=== PATIENT | male | born 1980 | race Caucasian/White ===

== ENCOUNTER → 2016-08-04 09:25 | Day surgery (SDC) | payer BC ==
--- NOTE | 2016-07-19 09:17 | HP ---
PREOPERATIVE HISTORY AND PHYSICAL: DATE OF OFFICE VISIT: 07/13/16 DATE OF SURGERY: 08/04/[address] - [facility] ATTENDING SURGEON: Meghana Soto MD PROCEDURE: Right knee arthroscopic surgery, lysis of adhesions. CHIEF COMPLAINT: Right knee pain. HISTORY OF PRESENT ILLNESS: Orlando follows up 21 weeks 1 day status post right knee arthroscopic ACL reconstruction with revision with quad autograft and lateral root meniscus tear. The patient states that he continues to have pain. He has received a corticosteroid injection in the past that has not worked, this pain continues to worsen. He also has intermittent swelling. The pain is in his medial knee. He also reports intermittent hyperextension of the knee and the knee feels locked especially when he is turning on the foot. The patient is off Xarelto he was on for treatment of DVT postoperatively. He is not taking anything for pain. He denies any numbness or tingling. He has failed conservative measures and has therefore agreed to undergo a right knee arthroscopic surgery, lysis of adhesions with Dr. Soto. PAST MEDICAL HISTORY: Positive for history of a DVT. PAST SURGICAL HISTORY: Five total surgeries on the knee to include a right knee ACL reconstruction, right knee ACL revision with bilateral root meniscus repair. He has also had a right shoulder labral repair. He denies complications with anesthesia. MEDICATIONS: Diclofenac 75 mg take 1 by mouth twice a day with food. ALLERGIES: No known drug allergies. FAMILY HISTORY: Denies, noncontributory. SOCIAL HISTORY: He works as a pump mechanic. He lives with his and children. He denies tobacco use and rarely consumes alcohol. REVIEW OF SYSTEMS: A 14-point review of systems was reviewed with the patient and it is found to be positive for right knee pain, stiffness, and instability, otherwise negative. Denies chest pain, shortness of breath. It is also positive for history of DVT. Denies chest pain, shortness of breath, history of bleeding disorder, or problems with anesthesias in the past. PHYSICAL EXAMINATION GENERAL: A well-developed, well-nourished 35-year-old male, in no acute distress. VITAL SIGNS: Height 74, weight 235, pulse 64, respiratory rate 16, BMI 30.2. HEENT: Normocephalic and atraumatic. Throat clear. NECK: Supple. PULMONARY: Lungs clear to auscultation bilaterally. No wheezing, rhonchi, or rales. CARDIOVASCULAR: Regular rate and rhythm. No murmurs, gallops, and rubs. No edema. ABDOMEN: Positive bowel sounds. Soft, nontender. MUSCULOSKELETAL: Right lower extremity, skin is intact. Well-healed surgical incision. Mild effusion. Nontender to palpation. Range of motion from 0 to 130 degrees. Stable to varus and valgus stress. Has stable Farida. +2 dorsalis pedis pulse. Sensation intact to light touch distally. Left lower extremity, skin is intact. No effusion. Nontender. Full range of motion. +2 dorsalis pedis pulse. Sensation is intact to light touch distally. NEURO: Alert and oriented x3. Cranial nerves grossly intact. Sensation is intact to light touch distally. DIAGNOSTIC STUDIES/LAB DATA: MRI revealed small joint effusion and degenerative changes of the lateral meniscus. ACL is intact. IMPRESSION: Ankylosis, right knee. History of ACL reconstruction. PLAN: Orlando is a 35-year-old male who presents to the clinic 21 weeks 1 day status post ACL reconstruction with a revision with quad autograft and lateral root of the meniscus tear. He is having pain and instability likely due to scar tissue from prior surgeries. Therefore, he is scheduled to undergo a right knee arthroscopic surgery, lysis of adhesions with Dr. Soto on 08/04/16. He will return to the office in 10 to 14 days postoperatively for followup and suture removal. He has a history of deep venous thrombosis and Xarelto has worked for him in the past, so he will be put on Xarelto postoperatively for DVT prophylaxis. Percocet will be used for postoperative pain management. SON REYEZ [id number]/[facility] #: [id number] YANELY
[~2016-08-04 09:25] MED LIST: Buffered Lidocaine 1% SYRIN* 3 ML/SYR SYRINGE INTRADERM ONE; Bupivacaine 0.25% EPI 200,000* 30 ML SDV ONE; Bupivacaine 0.25% SDV* 30 ML ONE; DiMENhydriNATE IV* 50 MG/ML VIAL IV PUSH PRN; Famotidine IV* 10 MG/ML 2 ML (20 mg) IV ONE; Famotidine IV* 10 MG/ML 2 ML (20 mg) ONE; Glycopyrrolate IV* 0.2 MG/ML 1 ML VIAL ONE; HYDROmorphone* 1 MG/ML 1 ML SYR IV PRN; HYDROmorphone* 1 MG/ML 1 ML SYR ONE; Ketorolac INJ* 30 MG/ML 1 ML VIAL ONE; Lidocaine 2% PF* 5 ML VIAL ONE; Midazolam* 1 MG/ML 2 ML VIAL (2 MG) ONE; Midazolam* 1 MG/ML 5 ML VIAL (5 MG) ONE; Ondansetron INJ* 2 MG/ML VIAL ONE; Propofol* 10 MG/ML 20 ML BTL IV PUSH ONE; ceFAZolin 2 GM PREMIX(*) 2 GM/50 ML BAG IVPB ONE; fentaNYL* 50 MCG/ML 2 ML VIAL (100 MCG VIAL) ONE; methylPREDNISolone ACETATE 80* 80 MG/ML 1 ML VIAL ONE; oxyCODONE/Acetamin 5/325 MG* TAB ONE; oxyCODONE/Acetamin 5/325 MG* TAB PO PRN
[2016-08-04 15:41] VITALS: BP 126/76
--- NOTE | 2016-08-05 02:28 | OP ---
DATE OF OPERATION: 08/04/16 [facility] DATE OF : 84 SURGEON: Meghana Soto MD MEDICAL OFFICE ASSISTANT: SON Agosto. An preschool assistant director was needed for the entirety of the case to help with positioning, retraction, and was utilized throughout all portions of the case and in case there was a repair that was involved. ANESTHESIOLOGIST: Dr. Aburto. ANESTHESIA: General. PRE-OP DIAGNOSES: Right knee persistent pain, no lakhwinder instability status post revision anterior cruciate ligament reconstruction, with some mild stiffness and symptomatic locking. POST-OP DIAGNOSIS: OPERATIVE PROCEDURE: Right knee arthroscopy with lysis of adhesions and synovectomy. INDICATIONS: Orlando Salamanca underwent a revision ACL reconstruction using quad tendon autograft and a lateral root of the meniscus repair in February of 2016. His surgery was complicated by postoperative DVT and the fact that he could not go to physical therapy. He was doing well. He felt that his knee was stable but he had persistent anteriorly based pain. He would have aching. He felt like the knee would give way. His motion was acceptable but he was missing some full extension. The pain was all about the knee cap and there was poor mobilization. After risks and benefits of surgery and trial with steroid injections which brought him quite a bit of relief, the decision was made to proceed with arthroscopic surgery with lysis of adhesions and meniscus versus loose body removal as indicated. Risks include but are not limited to, bleeding , infection, damage to nerves, vessels, surrounding structures, wound nonhealing , persistent pain, need for further surgery, risk of anesthesia, risk of DVT. He has a previous history of DVT including a recent one with his last surgery as well as risk of anesthesia. He has elected to proceed with surgery. COMPLICATIONS: None. ESTIMATED BLOOD LOSS: Minimal. DESCRIPTION OF PROCEDURE: The patient was greeted in the preoperative area by the attending surgeon, correct extremity was marked, consent was confirmed. The patient was then brought back to the operating suite where he was placed in supine position on the operating table. He underwent general anesthesia with LMA intubation, which he tolerated without difficulty. An unsterile tourniquet was placed high on the right leg. The leg was examined and he was found to have 1 to 130 degrees range of motion, stable Farida, negative posterior drawer , patellar mobilization was difficult, and there was abundant scar under the lateral portal and medial portal. After which a miniature surgical pause was done and the the knee was intra-articularly injected with 0.25% Marcaine with epi. A lateral post was placed and the right leg was prepped and draped in the usual sterile fashion, beginning with chlorhexidine soap and alcohol wipe and final prep with ChloraPrep. After appropriate surgical pause indicating side, site, procedure, and administration of antibiotics, the lateral portal was made sharply with 11 blade. The scope was introduced through the joint. The joint was examined. There was abundant scar that was prepatellar that was present all around the lateral portal and medial portal. There was a scar that was enveloping the patella as well. The patellofemoral joint had grade 0 to 1 changes. The trochlea had very mild small ridge of grade 1 changes. The medial and lateral femoral condyles did not appear to have any wear proximally. The medial and lateral gutters were intact and somewhat difficult to access due to the scar anteriorly. The scope was brought into the notch. The ACL and PCL were intact. The graft had healed quite well. The scope was placed in the medial compartment and medial meniscus was probed and found to be intact. The medial femoral condyle and medial tibial plateau had grade 0 changes. The knee was placed in figure-of-4 position. The previous lateral meniscal repair was still found to be found down. This was probed. The lateral meniscus was also intact. The lateral femoral condyle and lateral tibial plateau had grade 0 changes. The shaver was brought by the lateral root of the meniscus to see if there was any loose debris that was removed and some mild fraying was removed. The knee was then placed between 90 degrees and full extension. The electrocautery device was used to remove the abundant scar anterior along the prepatellar area. This was thick and very hard to remove. This was encompassing all the way into the gutters. A synovectomy was done anteriorly. With the knee in extension, the scar that was around the knee cap as well was removed medially and laterally. This allowed for mobilization and elevation of the knee cap. Once this was complete, all loose debris and tissue were removed from the joint. The final images were obtained. The knee was taken through range of motion and found to extend to 0. All fluid and debris was removed. The portals were closed with 3-0 nylon. The knee was intra-articularly injected with 30 cc of Marcaine with 80 mg of Depo. He was then awoken from anesthesia and transferred to the PACU in stable condition. POSTOPERATIVE PLAN: He will be weightbearing as tolerated. He will be allowed to work on range of motion as tolerated. We will send him to physical therapy to finish his rehab on his ACL as well as rehab this. He will be discharged on pain medication. He will start Xarelto due to previous history of two DVTs, one from the most recent surgery that he has done with me and he will be on Xarelto for at least 2 weeks. He will also be discharged on antibiotics due to multiple surgeries previously on this knee. I will see him back in 10 to 14 days. CC: PCP, Alvino Alexander MD* [id number]/[facility] #: [id number] MTDD
== END | disposition home or self-care (01) ==
LOC: OR 09:25
PROVIDERS: ATTEND Orthopaedic Surgery
DX: M25.561 Pain in right knee (principal); M23.91 Unspecified internal derangement of right knee; M25.661 Stiffness of right knee, not elsewhere classified; Z86.718 Personal history of other venous thrombosis and embolism
CPT/HCPCS: A9270-GY; J0690; J1040; J1170; J1885; J2250; J2405; J2704; J3010

== ENCOUNTER 2016-08-18 13:23 | Observation (INO) | payer BC ==
[2016-08-18] MEDS ORDERED: NS 0.9% 1000 ML* 1,000 ML IV ONE (13:36)
[2016-08-18] MEDS ORDERED: Ondansetron INJ* 2 MG/ML VIAL IV ONE (13:36)
[2016-08-18] MEDS ORDERED: Ketorolac INJ* 30 MG/ML 1 ML VIAL IV ONE (13:36)
[2016-08-18 13:52] LABS: Hematocrit 44 % (42-52); Mean Corpuscular HGB Conc 34 g/dl (31-36); Mean Corpuscular Hemoglobin 31 pg (27-31); Mean Corpuscular Volume 90 fL (80-94); Mean Platelet Volume 10 um3 (7.4-10.4); Red Blood Count 4.92 10^6/ul (4.0-5.4); Red Cell Distribution Width 13 % (10.5-15); White Blood Count 7.7 10^3/ul (3.5-10.8)
[2016-08-18 14:14] LABS: Albumin 4.3 g/dL (3.2-5.2); BUN/Creatinine Ratio 16.7 (8-20); C Reactive Protein 1.87 mg/L (< 5.00); Calcium 10.2 mg/dL (8.6-10.3); EGFR African American 108.2 (>60); EGFR Non-African American 84.1 (>60); Globulin 2.6 g/dL (2-4); Potassium 3.5 mmol/L (3.5-5.0); Total Bilirubin 0.7 mg/dL (0.2-1.0); Total Protein 6.9 g/dL (6.4-8.9)
[2016-08-18] MEDS ORDERED: Morphine INJ* 4 MG/ML 1 ML SYRINGE IV ONE ×2 (14:15→15:59)
--- NOTE | 2016-08-18 14:28 | RAD ---
INDICATION: Left flank pain COMPARISON: CT May 27, 2014 TECHNIQUE: Noncontrast axial source images were acquired from the level hemidiaphragms to the symphysis pubis as part of CT imaging for renal stone. Lung bases: The lung bases are clear. Liver: The liver is normal in size. Noncontrast imaging shows no evidence of a hepatic mass or ductal dilatation. Gallbladder: There are no calcified gallstones. There is no evidence of wall thickening or pericholecystic fluid.. Spleen: The spleen is normal in size. The noncontrast CT appearance is normal. Pancreas: Noncontrast imaging shows no pancreatic mass or ductal dilitation. Adrenal glands: No masses are identified. Kidneys/Bladder: There is a 3 mm proximal left ureteral calculus located near the UPJ that is NOT associated significant obstructive findings. There is an additional nonobstructive 1 mm calculus in the upper pole of the left kidney and there are 3 nonobstructive renal calculi on the right the right kidney all in the 1 mm range. The bladder is unremarkable.. Adenopathy: There is no evidence of intraperitoneal or retroperitoneal adenopathy. Evaluation is limited without oral contrast. Fluid collections: There are no free or localized fluid collections. Vessels: The aorta and iliac vessels are normal in caliber. There are no significant atherosclerotic changes. The IVC appears normal Pelvic organs: The prostate and seminal vesicles appear normal GI tract: Evaluation of the bowel is limited without oral contrast. The stomach, small bowel, and lower GI tract appear grossly normal. There are no obstructive findings. The appendix is visualized and appears normal. Soft tissues: No soft tissue abnormalities of the extraperitoneal abdomen or pelvis are identified. Osseous structures: There are no acute osseous findings. IMPRESSION: BILATERAL NEPHROLITHIASIS WITH A 3 MM PROXIMAL LEFT URETERAL CALCULUS. NO SIGNIFICANT OBSTRUCTION.
[2016-08-18 15:23] LABS: Urine Bacteria Absent (Absent); Urine Bilirubin Negative (Negative); Urine Glucose Negative (Negative); Urine Nitrite Negative (Negative)
[2016-08-18] MEDS ORDERED: oxyCODONE/Acetamin 5/325 MG* TAB PO ONE (15:52)
[2016-08-18] MEDS ORDERED: HYDROmorphone* 1 MG/ML 1 ML SYR IV SLOW PU PRN (17:45)
[2016-08-18] MEDS ORDERED: Tamsulosin CAP* 0.4 MG PO ONE (17:48)
[2016-08-18] MEDS ORDERED: Ondansetron INJ* 2 MG/ML VIAL IV PRN (18:50)
[2016-08-18] MEDS: NS 0.9% 1000 ML* 1,000 ML IV SCH ×2 (18:54→19:30)
[2016-08-18] MEDS: HYDROmorphone* 1 MG/ML 1 ML SYR IV SLOW PU PRN ×2 (19:30→23:39)
[2016-08-18] MEDS ORDERED: Enoxaparin(*) 40 MG/0.4 ML SYR SUBCUT SCH (20:00)
--- NOTE | 2016-08-18 22:47 | HP ---
HISTORY AND PHYSICAL: DATE OF ADMISSION: 08/18/16 PRIMARY CARE PROVIDER: Dr. Alexander. ORTHOPEDIC SURGEON: Dr. Soto. CHIEF COMPLAINT: Left flank pain. HISTORY OF PRESENT ILLNESS: Mr. Salamanca is a 35-year-old male with history of DVT following ACL repair in February 2016 and history of PE following a broken leg in 2008 with no other significant past medical history who presents to the emergency room with complaints of left flank pain. The patient states that at noon he had the sudden onset of severe left flank pain. He noted at that time when he urinated, his urine was light orange in color. He denied any dysuria. He did not see any lakhwinder blood. The patient states that he has not urinated since that time at noon. He denies any associated nausea or vomiting. The patient has never had any pain like this in the past nor has he ever had a kidney stone in the past. PAST MEDICAL HISTORY: 1. History of PE following broken leg in 2008. 2. History of DVT following right ACL repair, February 2016. PAST SURGICAL HISTORY: 1. Right broken leg, 2008, status post casting. 2. Right ACL repair, February 2016. 3. Right knee arthroscopy, August 2016. 4. Right shoulder surgery, September 2015. MEDICATIONS: None. ALLERGIES: No known drug allergies. FAMILY HISTORY: Mom, she is living in her 50s. She does have a history of breast cancer. Dad is living, he is 60 and healthy. SOCIAL HISTORY: The patient is a nonsmoker. Drinks alcohol rarely. He works at a machine shop. He is . He has 2 children and a third child on the way. His is his healthcare proxy. REVIEW OF SYSTEMS: The patient denies any fever, chills, or anorexia. He denies any chest pain or palpitations. No lower extremity edema. No shortness of breath. No abdominal pain, nausea, vomiting, constipation or diarrhea. No hematochezia. No hematuria or dysuria as above. No numbness or tingling of the fingers or toes, no weakness. He has occasional headaches. No anxiety or depression. PHYSICAL EXAMINATION GENERAL: The patient is a well-developed, young, healthy-appearing male sitting up in the bed, in no acute distress. VITAL SIGNS: Blood pressure 132/84, pulse 65, respirations 20, temp 98.2, O2 sat is 99% on room air. HEENT: Pupils are equal, they are round. Extraocular muscles are intact. Oropharynx is clear. Oral mucosa is moist. NECK: There is no submandibular, cervical, or supraclavicular adenopathy. Thyroid is not enlarged. No thyroid nodules noted. PULMONARY: Lungs are clear to auscultation bilaterally. CARDIAC: Normal S1, S2. Regular rate and rhythm. No murmurs, rubs, or gallops. ABDOMEN: Bowel sounds present. Abdomen is soft, nontender, nondistended. MUSCULOSKELETAL: There is no cyanosis or clubbing of the digits. There is full active range of motion. SKIN: Warm and dry. There are no rashes. NEUROLOGIC: Cranial nerves II through XII are grossly intact. Sensation is intact to light touch throughout. Strength is 5/5 and symmetric in both the upper and lower extremities bilaterally. PSYCH: The patient is alert. He is oriented x3. Affect is appropriate. LABORATORY DATA: WBC 7.7, hemoglobin 15.0, hematocrit 44, platelets 202. PTT 23.4. Sodium 140, potassium 3.5, chloride 108, CO2 24, BUN 17, creatinine 1.02 , glucose 122, lactic acid 1.5, calcium 10.2, magnesium 2.0, bilirubin 0.7, AST 20, ALT 36, alk phos 69, CRP 1.87, albumin 4.3, lipase 25. Urinalysis reveals cloudy urine with specific gravity of 1.021, 1+ protein, 3+ blood and 3+ rbc. CT abdomen and pelvis, bilateral nephrolithiasis with 3 mm proximal left ureteral calculus. No significant obstruction. ASSESSMENT AND PLAN: Mr. Salamanca is a 35-year-old male with no significant past medical history outside of provoked deep venous thrombosis and pulmonary embolism following a broken leg and arthroscopic knee surgery who presents to the emergency room with complaints of sudden onset of left flank pain and is identified to have a proximal left ureteral stone. 1. Left ureteral stone. The patient will be started on Flomax per recommendations from Dr. Hudson. Additionally, he will have aggressive IV fluid hydration and pain control. The stone is only 3 mm in size and is likely to pass on its own. The patient's urine will be strained. At this time, there are no signs of infection and therefore, antibiotics will be withheld. 2. DVT prophylaxis. According to Adult Thrombosis Prophylaxis Risk Factor Assessment Guide, the patient has total risk factor score of 4 making him high risk. He will be started on Lovenox 40 mg subcutaneously daily. 3. Code status is full. TIME SPENT: Fifty five minutes was spent admitting this patient. CC: Dr. Alexander* [id number]/[facility] #: [id number] MTDD
[2016-08-19] MEDS: NS 0.9% 1000 ML* 1,000 ML IV SCH ×2 (01:58→09:58)
[2016-08-19] MEDS: HYDROmorphone* 1 MG/ML 1 ML SYR IV SLOW PU PRN ×2 (03:25→09:45)
--- NOTE | 2016-08-19 07:40 | ED ---
Monica Cleary Matthew, scribed for Esau Lott MD on 08/18/16 at 1421 . Abdominal Pain/Male - HPI Summary HPI Summary: A 35 y/o male presents to the ED with sudden, constant, left flank pain since an hour ago. The pain is rated 10/10 in severity. The pain started while the patient was standing at work. Associated symptoms include nausea. The patient denies vomiting. No Hx of kidney stones. The patient stopped xeralto two days ago. SHx includes shoulder and knee surgery. PMHx includes PE and DVT. The patient does not smoke, no alcohol, and no drugs. He reports no FHx. - History of Current Complaint Chief Complaint: EDAbdPain Stated Complaint: ABD PAIN Time Seen by Provider: 08/18/16 13:36 Hx Obtained From: Patient Onset/Duration: Sudden Onset, Lasting Hours, Still Present Timing: Constant Severity Initially: Moderate Severity Currently: Moderate Pain Intensity: 10 Pain Scale Used: 0-10 Numeric Location: Flank - LT Radiates: No Associated Signs And Symptoms: Positive: Nausea. Negative: Vomiting - Allergies/Home Medications Allergies/Adverse Reactions: Allergies Allergy/AdvReac Type Severity Reaction Status Date / Time No Known Allergies Allergy Verified 08/18/16 13:24 PMH/Surg Hx/FS Hx/Imm Hx Endocrine/Hematology History: Denies: Hx Diabetes, Hx Thyroid Disease Cardiovascular History: Reports: Other Cardiovascular Problems/Disorders - HX OF BLOOD CLOTS Denies: Hx Hypertension, Hx Pacemaker/ICD Respiratory History: Reports: Hx Pulmonary Embolism - 2008, Other Respiratory Problems/Disorders - PE 2008 Denies: Hx Asthma, Hx Chronic Obstructive Pulmonary Disease (COPD) GI History: Denies: Hx Ulcer History: Denies: Hx Renal Disease Sensory History: Denies: Hx Contacts or Glasses, Hx Hearing Aid Opthamlomology History: Denies: Hx Contacts or Glasses Neurological History: Reports: Hx Migraine Psychiatric History: Denies: Hx Panic Disorder - Surgical History Surgery Procedure, Year, and Place: 05/2002 ARTHROSCOPY RIGHT KNEE, [facility]. 06/2002 ACL REPAIR RIGHT KNEE, [facility]. 10/2006 ARTHROSCOPY RIGHT KNEE, [facility]. 09/08/15 RIGHT SHOULDER ARTHROSCOPIC LABRAL REPAIR, BICEP TENODESIS, [facility]. ACL repair 02/21-RIGHT KNEE Hx Anesthesia Reactions: No Infectious Disease History: No Infectious Disease History: Denies: Hx Clostridium Difficile, Hx Hepatitis, Hx Human Immunodeficiency Virus (HIV), Hx of Known/Suspected MRSA, Hx Shingles, Hx Tuberculosis, Hx Known/ Suspected VRE, Hx Known/Suspected VRSA, History Other Infectious Disease, Traveled Outside the [place] in Last 30 Days - Family History Known Family History: Negative: Cardiac Disease, Hypertension, Diabetes, Blood Disorder - no FHX of clotting d/o - Social History Alcohol Use: Rare Substance Use Type: Reports: None Smoking Status (MU): Never Smoked Tobacco Review of Systems Constitutional: Negative Eyes: Negative ENT: Negative Cardiovascular: Negative Respiratory: Negative Positive: Abdominal Pain - left flank , Nausea. Negative: Vomiting Genitourinary: Negative Musculoskeletal: Negative Skin: Negative Neurological: Negative Psychological: Normal All Other Systems Reviewed And Are Negative: Yes Physical Exam - Summary Physical Exam Summary: VITAL SIGNS: Reviewed. GENERAL: Patient is a well developed and nourished male with acute distress secondary to pain. Patient is not in any acute respiratory distress. HEAD AND FACE: Normocephalic and atraumatic. EYES: PERRLA, EOMI x 2, No injected conjunctiva. EARS: Hearing grossly intact. Ear canals and tympanic membranes are WNL. MOUTH: Oropharynx within normal limits. NECK: Supple, trachea is midline, no adenopathy, no JVD. CHEST: Symmetric, no tenderness at palpation LUNGS: Clear to auscultation bilaterally. No wheezing or crackles. CVS: RRR,, S1 and S2 present, no murmurs or gallops appreciated. ABDOMEN: Soft, non-tender. No signs of distention. Positive bowel sounds. No rebound no guarding, and no masses palpated. No abdominal bruit or pulsations. Positive left CVAT's EXTREMITIES: FROM in all major joints, no edema, no cyanosis or clubbing. NEURO: Alert and oriented x 3. No acute neurological deficits. Speech is normal. SKIN: Dry and warm Triage Information Reviewed: Yes Vital Signs On Initial Exam: Initial Vitals Temp Pulse Resp BP Pulse Ox 98.2 F 71 16 151/110 100 08/18/16 13:24 08/18/16 13:24 08/18/16 13:24 08/18/16 13:24 08/18/16 13:24 Vital Signs Reviewed: Yes Diagnostics - Vital Signs Vital Signs Temp Pulse Resp BP Pulse Ox 08/18/16 13:24 98.2 F 71 16 151/110 100 - Laboratory Lab Results: Lab Results 08/18/16 08/18/16 08/18/16 Range/Units 13:46 13:46 13:46 WBC 7.7 (3.5-10.8) 10^3/ul RBC 4.92 (4.0-5.4) 10^6/ul Hgb 15.0 (14.0-18.0) g/dl Hct 44 (42-52) % MCV 90 (80-94) fL MCH 31 (27-31) pg MCHC 34 (31-36) g/dl RDW 13 (10.5-15) % Plt Count 202 (150-450) 10^3/ul MPV 10 (7.4-10.4) um3 Neut % (Auto) 59.4 (38-83) % Lymph % (Auto) 32.3 (25-47) % [place] % (Auto) 6.1 (1-9) % Eos % (Auto) 0.6 (0-6) % Baso % (Auto) 1.6 (0-2) % Absolute Neuts (auto) 4.6 (1.5-7.7) 10^3/ul Absolute Lymphs (auto) 2.5 (1.0-4.8) 10^3/ul Absolute Monos (auto) 0.5 (0-0.8) 10^3/ul Absolute Eos (auto) 0 (0-0.6) 10^3/ul Absolute Basos (auto) 0.1 (0-0.2) 10^3/ul Absolute Nucleated RBC 0.01 10^3/ul Nucleated RBC % 0.1 APTT 23.4 L (26.0-36.3) seconds Sodium 140 (133-145) mmol/L Potassium 3.5 (3.5-5.0) mmol/L Chloride 108 (101-111) mmol/L Carbon Dioxide 24 (22-32) mmol/L Anion Gap 8 (2-11) mmol/L BUN 17 (6-24) mg/dL Creatinine 1.02 (0.67-1.17) mg/dL Est GFR ( Amer) 108.2 (>60) Est GFR (Non-Af Amer) 84.1 (>60) BUN/Creatinine Ratio 16.7 (8-20) Glucose 122 H (70-100) mg/dL Lactic Acid (0.5-2.0) mmol/L Calcium 10.2 (8.6-10.3) mg/dL Magnesium 2.0 (1.9-2.7) mg/dL Total Bilirubin 0.70 (0.2-1.0) mg/dL AST 20 (13-39) U/L ALT 36 (7-52) U/L Alkaline Phosphatase 69 (34-104) U/L C-Reactive Protein 1.87 (< 5.00) mg/L Total Protein 6.9 (6.4-8.9) g/dL Albumin 4.3 (3.2-5.2) g/dL Globulin 2.6 (2-4) g/dL Albumin/Globulin Ratio 1.7 (1-3) Amylase 37 (29-103) U/L Lipase 25 (11.0-82.0) U/L Urine Color Urine Appearance Urine pH (5-9) Ur Specific [place] (1.010-1.030) Urine Protein (Negative) Urine Ketones (Negative) Urine Blood (Negative) Urine Nitrate (Negative) Urine Bilirubin (Negative) Urine Urobilinogen (Negative) Ur Leukocyte Esterase (Negative) Urine WBC (Auto) (Absent) Urine RBC (Auto) (Absent) Urine Bacteria (Absent) Urine Glucose (Negative) 08/18/16 08/18/16 Range/Units 13:46 15:00 WBC (3.5-10.8) 10^3/ul RBC (4.0-5.4) 10^6/ul Hgb (14.0-18.0) g/dl Hct (42-52) % MCV (80-94) fL MCH (27-31) pg MCHC (31-36) g/dl RDW (10.5-15) % Plt Count (150-450) 10^3/ul MPV (7.4-10.4) um3 Neut % (Auto) (38-83) % Lymph % (Auto) (25-47) % [place] % (Auto) (1-9) % Eos % (Auto) (0-6) % Baso % (Auto) (0-2) % Absolute Neuts (auto) (1.5-7.7) 10^3/ul Absolute Lymphs (auto) (1.0-4.8) 10^3/ul Absolute Monos (auto) (0-0.8) 10^3/ul Absolute Eos (auto) (0-0.6) 10^3/ul Absolute Basos (auto) (0-0.2) 10^3/ul Absolute Nucleated RBC 10^3/ul Nucleated RBC % APTT (26.0-36.3) seconds Sodium (133-145) mmol/L Potassium (3.5-5.0) mmol/L Chloride (101-111) mmol/L Carbon Dioxide (22-32) mmol/L Anion Gap (2-11) mmol/L BUN (6-24) mg/dL Creatinine (0.67-1.17) mg/dL Est GFR ( Amer) (>60) Est GFR (Non-Af Amer) (>60) BUN/Creatinine Ratio (8-20) Glucose (70-100) mg/dL Lactic Acid 1.5 (0.5-2.0) mmol/L Calcium (8.6-10.3) mg/dL Magnesium (1.9-2.7) mg/dL Total Bilirubin (0.2-1.0) mg/dL AST (13-39) U/L ALT (7-52) U/L Alkaline Phosphatase (34-104) U/L C-Reactive Protein (< 5.00) mg/L Total Protein (6.4-8.9) g/dL Albumin (3.2-5.2) g/dL Globulin (2-4) g/dL Albumin/Globulin Ratio (1-3) Amylase (29-103) U/L Lipase (11.0-82.0) U/L Urine Color Yellow Urine Appearance Cloudy Urine pH 6.0 (5-9) Ur Specific [place] 1.021 (1.010-1.030) Urine Protein 1+(30 mg/dl) H (Negative) Urine Ketones Negative (Negative) Urine Blood 3+ H (Negative) Urine Nitrate Negative (Negative) Urine Bilirubin Negative (Negative) Urine Urobilinogen Negative (Negative) Ur Leukocyte Esterase Negative (Negative) Urine WBC (Auto) Absent (Absent) Urine RBC (Auto) 3+(>10/hpf) H (Absent) Urine Bacteria Absent (Absent) Urine Glucose Negative (Negative) Result Diagrams: 08/18/16 13:46 08/18/16 13:46 Lab Statement: Any lab studies that have been ordered have been reviewed, and results considered in the medical decision making process. - CT CT A/P CT Interpretation: Positive (See Comments) - IMPRESSION: BILATERAL NEPHROLITHIASIS WITH A 3 MM PROXIMAL LEFT URETERAL CALCULUS. NO SIGNIFICANT OBSTRUCTION. CT Interpretation Completed By: Radiologist Abdominal Pain Fem Course/Dx - Course Assessment/Plan: A 35 y/o male presents to the ED with sudden, constant, left flank pain since an hour ago. The pain is rated 10/10 in severity. The pain started while the patient was standing at work. Associated symptoms include nausea. The patient denies vomiting. No Hx of kidney stones. The patient stopped xeralto two days ago. SHx includes shoulder and knee surgery. PMHx includes PE and DVT. The patient does not smoke no alcohol, and no drugs. He reports no FHx. Blood work WNL, urinalysis with 3+ blood, A/P CT shows bilateral nephrolithiasis with a 3 mm proximal left ureteral calculus and no significant obstruction. The patient was initially given IV fluids and Toradol for the pain. He was also given Flomax. The pain continued therefore he was given two addition doses of morphine and Percocet, which has now improved the pain. However, 15 minutes after the Percocet the patient developed 8/10 pain again. The patient was diaphoretic therefore he was given an additional dose of morphine. Discussed my findings with Dr. Hudson who recommended admission for pain control and he will consult on the patient in the morning. I also discussed my findings with Dr. Kevin who accepted the patient for admission. The patent is A&Ox3 and hes hemodynamically stable. - Diagnoses Differential Diagnosis/HQI/PQRI: Bowel Obstruction, Diverticulitis, Ureteral Stone Provider Diagnoses: Kidney stone on left side - Provider Notifications Discussed Care Of Patient With: Dr. Hudson (Urology) at 17:43 -- Notified of patient's history and recommends the patient be admitted into hospitalist services. Dr. Kevin (Hospitalist) at 17:44 -- Notified of patient's history and will admit the patient. Discharge - Discharge Plan Condition: Stable Disposition: ADMITTED TO [facility] The documentation as recorded by the scribeMonica Matthew accurately reflects the service I personally performed and the decisions made by me, Esau Lott MD.
[2016-08-19] MEDS ORDERED: Tamsulosin CAP* 0.4 MG PO SCH (09:00)
[2016-08-19] MEDS ORDERED: oxyCODONE TAB* 5 MG TAB PO PRN (09:18)
--- NOTE | 2016-08-19 09:38 | RAD ---
HISTORY: Left ureteral calculus COMPARISONS: CT dated August 18, 2016 VIEWS: Frontal views of the abdomen. FINDINGS: BOWEL: There is a nonspecific bowel gas pattern, with nondilated small bowel gas noted. CALCULI: There is a 0.3 cm calculus overlying the left hemiabdomen at the level of the L2 transverse process, corresponding to the calculus noted on previous CT examination. This is stable in size and position. BONES AND SOFT TISSUES: There are no osseous abnormalities. OTHER FINDINGS: The lung bases are clear. There is no subphrenic gas. IMPRESSION: STABLE LEFT NEPHROLITHIASIS
[2016-08-19 15:54] VITALS: BP 122/54
--- NOTE | 2016-08-19 16:37 | PN ---
Subjective Date of Service: 08/19/16 Interval History: Pt is feeling ok. He wants to go home. He continues to have mild left flank pain. He thinks he will be able to manage the pain at home with oral pain medications. He has not seen the stone in the urine yet. Objective Active Medications: Enoxaparin Sodium (Lovenox(*)) 40 mg SUBCUT Q24H [facility] Last Admin: 08/18/16 21:50 Dose: 40 mg Hydromorphone HCl (Dilaudid Iv*) 1 mg IV SLOW PU Q4H PRN PRN Reason: PAIN Last Admin: 08/19/16 09:45 Dose: 1 mg Sodium Chloride (Ns 0.9% 1000 Ml*) 1,000 mls @ 150 mls/hr IV PER RATE [facility] Last Admin: 08/19/16 09:58 Dose: 150 mls/hr Ondansetron HCl (Zofran Inj*) 4 mg IV Q6H PRN PRN Reason: NAUSEA Last Admin: 08/19/16 09:44 Dose: 4 mg Oxycodone HCl (Roxycodone Tab*) 5 mg PO Q4H PRN PRN Reason: PAIN Tamsulosin HCl (Flomax Cap*) 0.4 mg PO DAILY [facility] Last Admin: 08/19/16 10:12 Dose: Not Given Vital Signs 08/18/16 08/18/16 08/18/16 17:59 18:00 18:01 Temperature Pulse Rate 75 79 Respiratory Rate Blood Pressure 136/83 (mmHg) O2 Sat by Pulse 99 99 Oximetry 08/18/16 08/18/16 08/18/16 18:07 18:30 19:30 Temperature Pulse Rate 65 Respiratory 20 20 Rate Blood Pressure 132/84 (mmHg) O2 Sat by Pulse 99 Oximetry 08/18/16 08/18/16 08/18/16 19:33 20:30 23:39 Temperature 98.1 F Pulse Rate 77 Respiratory 18 18 18 Rate Blood Pressure 134/70 (mmHg) O2 Sat by Pulse 100 Oximetry 08/19/16 08/19/16 08/19/16 00:25 00:39 03:25 Temperature Pulse Rate Respiratory 18 18 18 Rate Blood Pressure (mmHg) O2 Sat by Pulse Oximetry 08/19/16 08/19/16 08/19/16 04:25 07:27 09:45 Temperature 97.6 F Pulse Rate 68 Respiratory 18 16 20 Rate Blood Pressure 121/57 (mmHg) O2 Sat by Pulse 99 Oximetry 08/19/16 08/19/16 08/19/16 10:45 11:45 15:20 Temperature 98.1 F Pulse Rate 55 Respiratory 18 18 Rate Blood Pressure 129/69 (mmHg) O2 Sat by Pulse 100 Oximetry 08/19/16 15:48 Temperature 97.9 F Pulse Rate 52 Respiratory 12 Rate Blood Pressure 122/54 (mmHg) O2 Sat by Pulse 100 Oximetry Appearance: Young male lying in bed, NAD Eyes: No Scleral Icterus Ears/Nose/Mouth/Throat: Mucous Membranes Moist Respiratory: Symmetrical Chest Expansion and Respiratory Effort, Clear to Auscultation Cardiovascular: NL Sounds; No Murmurs; No JVD, RRR, No Edema Abdominal: NL Sounds; No Tenderness; No Distention Extremities: No Clubbing, Cyanosis Skin: No Rash or Ulcers, No Nodules or Sclerosis Neurological: Alert and Oriented x 3 Result Diagrams: 08/18/16 13:46 08/18/16 13:46 Additional Lab and Data: Lab Results 08/18/16 08/18/16 08/18/16 Range/Units 13:46 13:46 13:46 WBC 7.7 (3.5-10.8) 10^3/ul RBC 4.92 (4.0-5.4) 10^6/ul Hgb 15.0 (14.0-18.0) g/dl Hct 44 (42-52) % MCV 90 (80-94) fL MCH 31 (27-31) pg MCHC 34 (31-36) g/dl RDW 13 (10.5-15) % Plt Count 202 (150-450) 10^3/ul MPV 10 (7.4-10.4) um3 Neut % (Auto) 59.4 (38-83) % Lymph % (Auto) 32.3 (25-47) % [place] % (Auto) 6.1 (1-9) % Eos % (Auto) 0.6 (0-6) % Baso % (Auto) 1.6 (0-2) % Absolute Neuts (auto) 4.6 (1.5-7.7) 10^3/ul Absolute Lymphs (auto) 2.5 (1.0-4.8) 10^3/ul Absolute Monos (auto) 0.5 (0-0.8) 10^3/ul Absolute Eos (auto) 0 (0-0.6) 10^3/ul Absolute Basos (auto) 0.1 (0-0.2) 10^3/ul Absolute Nucleated RBC 0.01 10^3/ul Nucleated RBC % 0.1 APTT 23.4 L (26.0-36.3) seconds Sodium 140 (133-145) mmol/L Potassium 3.5 (3.5-5.0) mmol/L Chloride 108 (101-111) mmol/L Carbon Dioxide 24 (22-32) mmol/L Anion Gap 8 (2-11) mmol/L BUN 17 (6-24) mg/dL Creatinine 1.02 (0.67-1.17) mg/dL Est GFR ( Amer) 108.2 (>60) Est GFR (Non-Af Amer) 84.1 (>60) BUN/Creatinine Ratio 16.7 (8-20) Glucose 122 H (70-100) mg/dL Lactic Acid (0.5-2.0) mmol/L Calcium 10.2 (8.6-10.3) mg/dL Magnesium 2.0 (1.9-2.7) mg/dL Total Bilirubin 0.70 (0.2-1.0) mg/dL AST 20 (13-39) U/L ALT 36 (7-52) U/L Alkaline Phosphatase 69 (34-104) U/L C-Reactive Protein 1.87 (< 5.00) mg/L Total Protein 6.9 (6.4-8.9) g/dL Albumin 4.3 (3.2-5.2) g/dL Globulin 2.6 (2-4) g/dL Albumin/Globulin Ratio 1.7 (1-3) Amylase 37 (29-103) U/L Lipase 25 (11.0-82.0) U/L Urine Color Urine Appearance Urine pH (5-9) Ur Specific [place] (1.010-1.030) Urine Protein (Negative) Urine Ketones (Negative) Urine Blood (Negative) Urine Nitrate (Negative) Urine Bilirubin (Negative) Urine Urobilinogen (Negative) Ur Leukocyte Esterase (Negative) Urine WBC (Auto) (Absent) Urine RBC (Auto) (Absent) Urine Bacteria (Absent) Urine Glucose (Negative) 08/18/16 08/18/16 Range/Units 13:46 15:00 WBC (3.5-10.8) 10^3/ul RBC (4.0-5.4) 10^6/ul Hgb (14.0-18.0) g/dl Hct (42-52) % MCV (80-94) fL MCH (27-31) pg MCHC (31-36) g/dl RDW (10.5-15) % Plt Count (150-450) 10^3/ul MPV (7.4-10.4) um3 Neut % (Auto) (38-83) % Lymph % (Auto) (25-47) % [place] % (Auto) (1-9) % Eos % (Auto) (0-6) % Baso % (Auto) (0-2) % Absolute Neuts (auto) (1.5-7.7) 10^3/ul Absolute Lymphs (auto) (1.0-4.8) 10^3/ul Absolute Monos (auto) (0-0.8) 10^3/ul Absolute Eos (auto) (0-0.6) 10^3/ul Absolute Basos (auto) (0-0.2) 10^3/ul Absolute Nucleated RBC 10^3/ul Nucleated RBC % APTT (26.0-36.3) seconds Sodium (133-145) mmol/L Potassium (3.5-5.0) mmol/L Chloride (101-111) mmol/L Carbon Dioxide (22-32) mmol/L Anion Gap (2-11) mmol/L BUN (6-24) mg/dL Creatinine (0.67-1.17) mg/dL Est GFR ( Amer) (>60) Est GFR (Non-Af Amer) (>60) BUN/Creatinine Ratio (8-20) Glucose (70-100) mg/dL Lactic Acid 1.5 (0.5-2.0) mmol/L Calcium (8.6-10.3) mg/dL Magnesium (1.9-2.7) mg/dL Total Bilirubin (0.2-1.0) mg/dL AST (13-39) U/L ALT (7-52) U/L Alkaline Phosphatase (34-104) U/L C-Reactive Protein (< 5.00) mg/L Total Protein (6.4-8.9) g/dL Albumin (3.2-5.2) g/dL Globulin (2-4) g/dL Albumin/Globulin Ratio (1-3) Amylase (29-103) U/L Lipase (11.0-82.0) U/L Urine Color Yellow Urine Appearance Cloudy Urine pH 6.0 (5-9) Ur Specific [place] 1.021 (1.010-1.030) Urine Protein 1+(30 mg/dl) H (Negative) Urine Ketones Negative (Negative) Urine Blood 3+ H (Negative) Urine Nitrate Negative (Negative) Urine Bilirubin Negative (Negative) Urine Urobilinogen Negative (Negative) Ur Leukocyte Esterase Negative (Negative) Urine WBC (Auto) Absent (Absent) Urine RBC (Auto) 3+(>10/hpf) H (Absent) Urine Bacteria Absent (Absent) Urine Glucose Negative (Negative) Assess/Plan/Problems-Billing Mr Salamanca is a 35 yo M who has a h/o a provoked DVT following a broken leg and a provoked PE following R ACL surgery who presented to the ER with c/o L flank pain and was found to have a proximal L ureteral stone. - Patient Problems (1) Left ureteral calculus Current Visit: Yes Status: Acute Code(s): N20.1 - CALCULUS OF URETER SNOMED Code(s): 96180943 Comment: The patient continues to have mild L flank pain. Much better than on admission. He thinks he can manage at home and would like to go home. He will continue on flomax and prn oxycodone. He will need to contact Dr. Hudson' s office for follow up in the next 1 week. He understands that he is to return to the ER for worsened pain, fever, chills or any other concerns. (2) DVT prophylaxis Current Visit: Yes Status: Acute Code(s): ZNP3434 - SNOMED Code(s): 002142974 Comment: SQ heparin (3) Full code status Current Visit: Yes Status: Acute Code(s): Z78.9 - OTHER SPECIFIED HEALTH STATUS SNOMED Code(s): 053883016 Status and Disposition: d/c home
--- NOTE | 2016-08-20 12:27 | DS ---
CC: Dr. Alexander; Dr. Hudson DISCHARGE SUMMARY: DATE OF ADMISSION: 08/18/16 DATE OF DISCHARGE: 08/19/16 PRIMARY CARE PROVIDER: Dr. Alexander. PRINCIPAL DIAGNOSIS: Proximal left ureteral stone. SECONDARY DIAGNOSES: 1. History of deep venous thrombosis. 2. History of pulmonary embolism. DISCHARGE MEDICATIONS: 1. Oxycodone 5 mg p.o. q.4 hours p.r.n. pain, dispensed 30 tablets. 2. Flomax 0.4 mg p.o. daily, dispensed 10 tablets. HOSPITAL COURSE: Mr. Salamanca is a 35-year-old male, who presented to the emergency room with complain ts of sudden onset of severe left flank pain. The patient was found to have a left proximal uretera l stone. The patient's pain has improved over the course of his hospitalization. He was seen in co nsultation by Dr. Hudson, who ordered a KUB on the morning of discharge, which revealed a stone to be in an unchanged position. There was consideration taking the patient to the operating room; how ever, if the patient's pain improved, the decision was made to not to go to the OR. The patient was given a diet to see if he could tolerate this. By the afternoon of 08/19/16, the patient was feeli ng improved though still having some mild discomfort. At this point, however, he has asked for disc harge home. If the patient's pain is under control, I feel that he can be discharged home today to continue with pain control on Flomax at home while awaiting the passage of the stone. The patient h as been given a strainer, so he can strain his urine. The patient should follow up with Dr. Trace may in the next 1 week. The patient has also been instructed to return to the emergency room if he de velops any worsening pain, fever, chills, or other signs of infection. FOLLOWUP CONCERNS: The patient is being discharged home today, 08/19/16. He is to follow up with Sadie Alexander in the next 3 to 5 days. ACTIVITY LEVEL: As tolerated. DIET: Regular. CONDITION ON DISCHARGE: Stable. TIME SPENT: Twenty-five minutes was spent discharging this patient. [id number]/[facility] #: [id number]
== END 2016-08-19 17:45 | disposition home or self-care (01) ==
LOC: ED 13:23 → MED 17:44
PROVIDERS: ADMIT Hospitalist; ATTEND Hospitalist
DX: N20.2 Calculus of kidney with calculus of ureter (principal); Z86.711 Personal history of pulmonary embolism; Z86.718 Personal history of other venous thrombosis and embolism
CPT/HCPCS: 36415; 74000; 74176; 80053; 81003; 81015; 82150; 83605; 83690; 83735; 85025; 85730; 86140; 96361; 96374; 96375; 96376; 99285; A9270-GY; G0378; J1170; J1650; J1885; J2270; J2405

== ENCOUNTER 2016-12-02 11:36 | Emergency (ER) | payer BC ==
[2016-12-02 11:47] VITALS: BP 121/90
[2016-12-02] MEDS ORDERED: Metoclopramide IV* 5 MG/ML 2 ML VIAL IV SLOW PU ONE (12:43)
[2016-12-02] MEDS ORDERED: Ondansetron INJ* 2 MG/ML VIAL IV ONE (12:43)
[2016-12-02 13:17] LABS: Hematocrit 44 % (42-52); Hemoglobin 14.7 g/dl (14.0-18.0); Mean Corpuscular HGB Conc 34 g/dl (31-36); Mean Corpuscular Hemoglobin 31 pg (27-31); Mean Corpuscular Volume 92 fL (80-94); Mean Platelet Volume 10 um3 (7.4-10.4); Red Blood Count 4.74 10^6/ul (4.0-5.4); Red Cell Distribution Width 13 % (10.5-15); White Blood Count 10.7 10^3/ul (3.5-10.8)
[2016-12-02 13:34] LABS: Calcium 10.1 mg/dL (8.6-10.3); EGFR African American 142.3 (>60); EGFR Non-African American 110.7 (>60); Globulin 2.3 g/dL (2-4); Potassium 3.6 mmol/L (3.5-5.0); Total Bilirubin 0.7 mg/dL (0.2-1.0); Total Protein 6.3 g/dL (6.4-8.9)
[2016-12-02] MEDS ORDERED: Iohexol 300* (CONTRAST) 10 ML SDV IV ONE (13:59)
--- NOTE | 2016-12-02 14:48 | RAD ---
Indication: Headaches CT of the head was performed without and with IV contrast. Additional postcontrast images of the venous sinuses was performed. Ventricular structures are midline. No midline shift is noted. The extra-axial spaces are unremarkable. There is no evidence of intracranial mass or hemorrhage. No other high or low density lesions are noted. The postcontrast images demonstrates sagittal sinus to be widely patent. The straight sinus is also widely patent. Bilaterally the transverse sinus is also patent without evidence of filling defects. IMPRESSION: No intracranial mass or hemorrhage is noted. No evidence of dural sinus thrombosis is noted.
[2016-12-02] MEDS ORDERED: Magnesium Oxide TAB* 400 MG PO ONE (16:37)
[2016-12-02] MEDS ORDERED: Dexamethasone IV* 10 MG in NS 0.9% 50 ML* 50 ML IVPB ONE (16:37)
[2016-12-02] MEDS ORDERED: Dexamethasone IV* 4 MG/ML 1 ML (4 MG) IV SLOW PU ONE (16:37)
== END 2016-12-02 17:00 | disposition left against medical advice (07) ==
LOC: ED 11:36
DX: R51 Headache (principal); Z53.21 Procedure and treatment not carried out due to patient leaving prior to being seen by health care provider
CPT/HCPCS: 36415; 70470; 80053; 85027; 85610; 85730; 96374; 96375; 99282; J1100; J2405

== ENCOUNTER → 2017-02-11 10:29 | Emergency (ER) | payer BC ==
[~2017-02-11 10:29] MED LIST changes: -Buffered Lidocaine 1% SYRIN* 3 ML/SYR SYRINGE INTRADERM ONE; -Bupivacaine 0.25% EPI 200,000* 30 ML SDV ONE; -Bupivacaine 0.25% SDV* 30 ML ONE; -DiMENhydriNATE IV* 50 MG/ML VIAL IV PUSH PRN; -Famotidine IV* 10 MG/ML 2 ML (20 mg) IV ONE; -Famotidine IV* 10 MG/ML 2 ML (20 mg) ONE; -Glycopyrrolate IV* 0.2 MG/ML 1 ML VIAL ONE; +HYDROmorphone INJ* 2 MG/ML CARPUJECT SYRINGE IV SLOW PU ONE; +HYDROmorphone INJ* 2 MG/ML CARPUJECT SYRINGE ONE; -HYDROmorphone* 1 MG/ML 1 ML SYR IV PRN; -HYDROmorphone* 1 MG/ML 1 ML SYR ONE; -Ketorolac INJ* 30 MG/ML 1 ML VIAL ONE; -Lidocaine 2% PF* 5 ML VIAL ONE; -Midazolam* 1 MG/ML 2 ML VIAL (2 MG) ONE; -Midazolam* 1 MG/ML 5 ML VIAL (5 MG) ONE; +Morphine INJ* 4 MG/ML 1 ML CARPUJECT IV ONE; -Ondansetron INJ* 2 MG/ML VIAL ONE; -Propofol* 10 MG/ML 20 ML BTL IV PUSH ONE; +Tamsulosin CAP* 0.4 MG PO ONE; -ceFAZolin 2 GM PREMIX(*) 2 GM/50 ML BAG IVPB ONE; +diPHENhydraMINE IV* 50 MG/ML 1 ml VIAL (BENADRYL) IV ONE; +diPHENhydraMINE IV* 50 MG/ML 1 ml VIAL (BENADRYL) ONE; -fentaNYL* 50 MCG/ML 2 ML VIAL (100 MCG VIAL) ONE; -methylPREDNISolone ACETATE 80* 80 MG/ML 1 ML VIAL ONE; -oxyCODONE/Acetamin 5/325 MG* TAB ONE; -oxyCODONE/Acetamin 5/325 MG* TAB PO PRN
[2017-02-11] MEDS: NS 0.9% 1000 ML* 2,000 ML IV ONE ×2 (11:00→12:29)
[2017-02-11 11:14] LABS: Hematocrit 44 % (42-52); Hemoglobin 15.3 g/dl (14.0-18.0); Mean Corpuscular HGB Conc 35 g/dl (31-36); Mean Corpuscular Hemoglobin 32 pg (27-31); Mean Corpuscular Volume 91 fL (80-94); Mean Platelet Volume 9 um3 (7.4-10.4); Red Blood Count 4.86 10^6/ul (4.0-5.4); Red Cell Distribution Width 13 % (10.5-15); White Blood Count 8.8 10^3/ul (3.5-10.8)
[2017-02-11 11:25] LABS: Urine Bacteria Absent (Absent); Urine Bilirubin Negative (Negative); Urine Glucose Negative (Negative); Urine Nitrite Negative (Negative)
[2017-02-11 11:30] LABS: Albumin 4.4 g/dL (3.2-5.2); BUN/Creatinine Ratio 16.1 (8-20); Calcium 9.9 mg/dL (8.6-10.3); EGFR African American 96.5 (>60); EGFR Non-African American 75.1 (>60); Globulin 2.4 g/dL (2-4); Potassium 3.5 mmol/L (3.5-5.0); Total Bilirubin 0.6 mg/dL (0.2-1.0); Total Protein 6.8 g/dL (6.4-8.9)
--- NOTE | 2017-02-11 12:40 | RAD ---
INDICATION: Hematuria. RIGHT side pain. Question kidney stone. History of urolithiasis. COMPARISON: November 12, 2016 CT. TECHNIQUE: Multidetector CT images were obtained from the lung bases to the ischial tuberosities. Evaluation of the viscera is limited without IV contrast. Multiplanar reformation. REPORT: Unremarkable visualized inferior thorax. Negative for CT abnormality of the unenhanced liver or gallbladder. Partial fatty replacement of the pancreas. Unremarkable spleen. Negative for CT abnormality of the upper GI, small bowel, appendix visualized medial to the cecum, or colon. Moderate distention of the rectum with formed stool. Negative for ascites, free air, hernias. Normal adrenal glands. Mild RIGHT hydronephrosis is traced to a 3 mm maximum dimension stone at the RIGHT ureterovesicular junction. Additional 2 mm stone at the inferior pole calyx of the RIGHT kidney and punctate stone at the inferior pole calyx of the LEFT kidney. Mild LEFT perinephric and periureteral fat stranding. Largely decompressed urinary bladder is unremarkable aside from the RIGHT UVJ stone. Symmetric seminal vesicles. Coarse calcification at the prostate. Negative for lymphadenopathy. Normal diameter abdominal aorta and iliac arteries. Negative for suspicious osseous lesions. IMPRESSION: Mild RIGHT hydronephrosis is traced to a 3 mm maximum dimension stone at the RIGHT ureterovesicular junction.
--- NOTE | 2017-02-11 12:45 | ED ---
GI/ HPI - HPI Summary HPI Summary: 36 male presents to ED with complaints of right sided flank pain that has moved to lower right side abdomen and groin that began this morning. States he thinks he is passing a kidney stone as he has had one in the past similar feeling. Denies nausea and vomiting. Normal bowel movements. Was having normal urination up until today when he only urinated a tiny amount of blood. Denies external abnormalities. Denies fever, chest pain and difficulty breathing. Has had a stone back in october that was 3mm and surgically removed due to it not passing. Has not taken any medication. Has PMHx significant for blood clots, on xarelto. No other complaints at this time. No testicular pain. Is a patient of Dr Hudson's. - History of Current Complaint Hx Obtained From: Patient Onset/Duration: Started Hours Ago Timing: Constant Severity: Severe Current Severity: Severe Pain Intensity: 10 Location of Pain: RLQ, Suprapubic, Flank - right Pain Characteristics: Sharp, Aching Pain Radiates to: RLQ, Inguinal Associated Signs and Symptoms: Positive: Hematuria, Dysuria Aggravating Factor(s): Voiding, Urination Alleviating Factor(s): Nothing - Additional Pertinent History Primary Care Physician: [id number] <Kylah Mazariegos - Last Filed: 02/11/17 15:21> <Estella Rosales - Last Filed: 02/11/17 19:50> - History of Current Complaint Chief Complaint: EDFlankPain Time Seen by Provider: 02/11/17 11:31 Stated Complaint: POSS KIDNEY STONES - Allergy/Home Medications Allergies/Adverse Reactions: Allergies Allergy/AdvReac Type Severity Reaction Status Date / Time No Known Allergies Allergy Verified 10/08/16 07:33 PMH/Surg Hx/FS Hx/Imm Hx Endocrine/Hematology History: Denies: Hx Diabetes, Hx Thyroid Disease Cardiovascular History: Reports: Other Cardiovascular Problems/Disorders - HX OF BLOOD CLOTS Denies: Hx Hypertension, Hx Pacemaker/ICD Respiratory History: Reports: Hx Pulmonary Embolism - 2008, Other Respiratory Problems/Disorders - PE 2008 Denies: Hx Asthma, Hx Chronic Obstructive Pulmonary Disease (COPD) GI History: Denies: Hx Ulcer History: Reports: Hx Kidney Stones - LEFT Denies: Hx Renal Disease Sensory History: Denies: Hx Contacts or Glasses, Hx Hearing Aid Opthamlomology History: Denies: Hx Contacts or Glasses Neurological History: Reports: Hx Headaches - prn medication for, Hx Migraine - prn medication for Psychiatric History: Denies: Hx Panic Disorder - Surgical History Surgery Procedure, Year, and Place: 05/2002 ARTHROSCOPY RIGHT KNEE, [facility]. 06/2002 ACL REPAIR RIGHT KNEE, [facility]. 10/2006 ARTHROSCOPY RIGHT KNEE, [facility]. 09/08/15 RIGHT SHOULDER ARTHROSCOPIC LABRAL REPAIR, BICEP TENODESIS, [facility]. ACL repair 02/21-RIGHT KNEE. KIDNEY STONE REMOVAL Hx Anesthesia Reactions: No - Immunization History Immunizations Up to Date: Yes Infectious Disease History: No Infectious Disease History: Denies: Hx Clostridium Difficile, Hx Hepatitis, Hx Human Immunodeficiency Virus (HIV), Hx of Known/Suspected MRSA, Hx Shingles, Hx Tuberculosis, Hx Known/ Suspected VRE, Hx Known/Suspected VRSA, History Other Infectious Disease, Traveled Outside the [place] in Last 30 Days - Family History Known Family History: Positive: None, Other - breast CA - mother Negative: Cardiac Disease, Hypertension, Diabetes, Blood Disorder - no FHX of clotting d/o - Social History Alcohol Use: Rare Substance Use Type: Reports: None Smoking Status (MU): Never Smoked Tobacco <Kylah Mazariegos - Last Filed: 02/11/17 15:21> Review of Systems Constitutional: Negative Cardiovascular: Negative Respiratory: Negative Positive: Abdominal Pain Positive: flank pain, hematuria, pain Neurological: Negative All Other Systems Reviewed And Are Negative: Yes <Kylah Mazariegos - Last Filed: 02/11/17 15:21> Physical Exam Triage Information Reviewed: Yes Vital Signs On Initial Exam: Initial Vitals Temp Pulse Resp BP Pulse Ox 97.1 F 62 18 149/85 99 02/11/17 10:30 02/11/17 10:30 02/11/17 10:30 02/11/17 10:30 02/11/17 10:30 Vital Signs Reviewed: Yes Appearance: Positive: Well-Appearing, Well-Nourished, Pain Distress - severe, unable to sit still Skin: Positive: Warm, Skin Color Reflects Adequate Perfusion, Dry. Negative: Cold, Numb, Cyanosis @, Pale, Erythema @ Head/Face: Positive: Normal Head/Face Inspection Eyes: Positive: Conjunctiva Clear ENT: Positive: Hearing grossly normal, Pharynx normal Neck: Positive: Supple, Nontender Respiratory/Lung Sounds: Positive: Clear to Auscultation, Breath Sounds Present. Negative: Rales, Rhonchi, Wheezes Cardiovascular: Positive: Normal, RRR, Pulses are Symmetrical in both Upper and Lower Extremities - 2+. Negative: Murmur, Rub Abdomen Description: Positive: No Organomegaly, Soft, CVA Tenderness (R), Guarding, Other: - RLQ suprapubic discomfort. Negative: Bruit, CVA Tenderness ( L), Distended Bowel Sounds: Positive: Present Male Genital Exam: Positive: normal genitalia - per patient, deferred exam Musculoskeletal: Positive: Normal, Strength/ROM Intact Neurological: Positive: Normal, Sensory/Motor Intact, Alert, Oriented to Person Place, Time, Normal Gait <Kyalh Mazariegos - Last Filed: 02/11/17 15:21> Vital Signs On Initial Exam: Initial Vitals Temp Pulse Resp BP Pulse Ox 97.1 F 62 18 149/85 99 02/11/17 10:30 02/11/17 10:30 02/11/17 10:30 02/11/17 10:30 02/11/17 10:30 <Estella Rosales - Last Filed: 02/11/17 19:50> Diagnostics - Vital Signs Vital Signs Temp Pulse Resp BP Pulse Ox 02/11/17 12:00 73 133/71 98 02/11/17 11:53 22 02/11/17 11:52 79 95 02/11/17 11:50 145/87 02/11/17 11:46 22 02/11/17 11:00 24 02/11/17 10:30 97.1 F 62 18 149/85 99 - Laboratory Lab Results: Lab Results 02/11/17 02/11/17 02/11/17 Range/Units 10:52 10:52 10:52 WBC 8.8 (3.5-10.8) 10^3/ul RBC 4.86 (4.0-5.4) 10^6/ul Hgb 15.3 (14.0-18.0) g/dl Hct 44 (42-52) % MCV 91 (80-94) fL MCH 32 H (27-31) pg MCHC 35 (31-36) g/dl RDW 13 (10.5-15) % Plt Count 235 (150-450) 10^3/ul MPV 9 (7.4-10.4) um3 Neut % (Auto) 62.9 (38-83) % Lymph % (Auto) 25.9 (25-47) % [place] % (Auto) 9.6 H (1-9) % Eos % (Auto) 1.1 (0-6) % Baso % (Auto) 0.5 (0-2) % Absolute Neuts (auto) 5.5 (1.5-7.7) 10^3/ul Absolute Lymphs (auto) 2.3 (1.0-4.8) 10^3/ul Absolute Monos (auto) 0.8 (0-0.8) 10^3/ul Absolute Eos (auto) 0.1 (0-0.6) 10^3/ul Absolute Basos (auto) 0 (0-0.2) 10^3/ul Absolute Nucleated RBC 0.02 10^3/ul Nucleated RBC % 0.3 Sodium 139 (133-145) mmol/L Potassium 3.5 (3.5-5.0) mmol/L Chloride 106 (101-111) mmol/L Carbon Dioxide 28 (22-32) mmol/L Anion Gap 5 (2-11) mmol/L BUN 18 (6-24) mg/dL Creatinine 1.12 (0.67-1.17) mg/dL Est GFR ( Amer) 96.5 (>60) Est GFR (Non-Af Amer) 75.1 (>60) BUN/Creatinine Ratio 16.1 (8-20) Glucose 104 H (70-100) mg/dL Lactic Acid 0.9 (0.5-2.0) mmol/L Calcium 9.9 (8.6-10.3) mg/dL Total Bilirubin 0.60 (0.2-1.0) mg/dL AST 20 (13-39) U/L ALT 40 (7-52) U/L Alkaline Phosphatase 70 (34-104) U/L Total Protein 6.8 (6.4-8.9) g/dL Albumin 4.4 (3.2-5.2) g/dL Globulin 2.4 (2-4) g/dL Albumin/Globulin Ratio 1.8 (1-3) Urine Color Urine Appearance Urine pH (5-9) Ur Specific [place] (1.010-1.030) Urine Protein (Negative) Urine Ketones (Negative) Urine Blood (Negative) Urine Nitrate (Negative) Urine Bilirubin (Negative) Urine Urobilinogen (Negative) Ur Leukocyte Esterase (Negative) Urine WBC (Auto) (Absent) Urine RBC (Auto) (Absent) Urine Bacteria (Absent) Urine Glucose (Negative) 02/11/17 Range/Units 10:52 WBC (3.5-10.8) 10^3/ul RBC (4.0-5.4) 10^6/ul Hgb (14.0-18.0) g/dl Hct (42-52) % MCV (80-94) fL MCH (27-31) pg MCHC (31-36) g/dl RDW (10.5-15) % Plt Count (150-450) 10^3/ul MPV (7.4-10.4) um3 Neut % (Auto) (38-83) % Lymph % (Auto) (25-47) % [place] % (Auto) (1-9) % Eos % (Auto) (0-6) % Baso % (Auto) (0-2) % Absolute Neuts (auto) (1.5-7.7) 10^3/ul Absolute Lymphs (auto) (1.0-4.8) 10^3/ul Absolute Monos (auto) (0-0.8) 10^3/ul Absolute Eos (auto) (0-0.6) 10^3/ul Absolute Basos (auto) (0-0.2) 10^3/ul Absolute Nucleated RBC 10^3/ul Nucleated RBC % Sodium (133-145) mmol/L Potassium (3.5-5.0) mmol/L Chloride (101-111) mmol/L Carbon Dioxide (22-32) mmol/L Anion Gap (2-11) mmol/L BUN (6-24) mg/dL Creatinine (0.67-1.17) mg/dL Est GFR ( Amer) (>60) Est GFR (Non-Af Amer) (>60) BUN/Creatinine Ratio (8-20) Glucose (70-100) mg/dL Lactic Acid (0.5-2.0) mmol/L Calcium (8.6-10.3) mg/dL Total Bilirubin (0.2-1.0) mg/dL AST (13-39) U/L ALT (7-52) U/L Alkaline Phosphatase (34-104) U/L Total Protein (6.4-8.9) g/dL Albumin (3.2-5.2) g/dL Globulin (2-4) g/dL Albumin/Globulin Ratio (1-3) Urine Color Red A Urine Appearance Cloudy Urine pH 6.0 (5-9) Ur Specific [place] 1.027 (1.010-1.030) Urine Protein 2+(100 mg/dl) H (Negative) Urine Ketones Trace H (Negative) Urine Blood 3+ H (Negative) Urine Nitrate Negative (Negative) Urine Bilirubin Negative (Negative) Urine Urobilinogen Negative (Negative) Ur Leukocyte Esterase Negative (Negative) Urine WBC (Auto) Absent (Absent) Urine RBC (Auto) 3+(>10/hpf) H (Absent) Urine Bacteria Absent (Absent) Urine Glucose Negative (Negative) Result Diagrams: 02/11/17 10:52 02/11/17 10:52 Lab Statement: Any lab studies that have been ordered have been reviewed, and results considered in the medical decision making process. - CT CT abd/pelvis CT Interpretation: Positive (See Comments) - Mild RIGHT hydronephrosis is traced to a 3 mm maximum dimension stone at the RIGHT ureterovesicular junction. CT Interpretation Completed By: Radiologist <Kylah Mazariegos - Last Filed: 02/11/17 15:21> - Vital Signs Vital Signs Temp Pulse Resp BP Pulse Ox 02/11/17 13:19 98.8 F 02/11/17 13:00 50 96 02/11/17 12:30 67 140/76 98 02/11/17 12:00 73 133/71 98 02/11/17 11:53 22 02/11/17 11:52 79 95 02/11/17 11:50 145/87 02/11/17 11:46 22 02/11/17 11:00 24 02/11/17 10:30 97.1 F 62 18 149/85 99 - Laboratory Lab Results: Lab Results 02/11/17 02/11/17 02/11/17 Range/Units 10:52 10:52 10:52 WBC 8.8 (3.5-10.8) 10^3/ul RBC 4.86 (4.0-5.4) 10^6/ul Hgb 15.3 (14.0-18.0) g/dl Hct 44 (42-52) % MCV 91 (80-94) fL MCH 32 H (27-31) pg MCHC 35 (31-36) g/dl RDW 13 (10.5-15) % Plt Count 235 (150-450) 10^3/ul MPV 9 (7.4-10.4) um3 Neut % (Auto) 62.9 (38-83) % Lymph % (Auto) 25.9 (25-47) % [place] % (Auto) 9.6 H (1-9) % Eos % (Auto) 1.1 (0-6) % Baso % (Auto) 0.5 (0-2) % Absolute Neuts (auto) 5.5 (1.5-7.7) 10^3/ul Absolute Lymphs (auto) 2.3 (1.0-4.8) 10^3/ul Absolute Monos (auto) 0.8 (0-0.8) 10^3/ul Absolute Eos (auto) 0.1 (0-0.6) 10^3/ul Absolute Basos (auto) 0 (0-0.2) 10^3/ul Absolute Nucleated RBC 0.02 10^3/ul Nucleated RBC % 0.3 Sodium 139 (133-145) mmol/L Potassium 3.5 (3.5-5.0) mmol/L Chloride 106 (101-111) mmol/L Carbon Dioxide 28 (22-32) mmol/L Anion Gap 5 (2-11) mmol/L BUN 18 (6-24) mg/dL Creatinine 1.12 (0.67-1.17) mg/dL Est GFR ( Amer) 96.5 (>60) Est GFR (Non-Af Amer) 75.1 (>60) BUN/Creatinine Ratio 16.1 (8-20) Glucose 104 H (70-100) mg/dL Lactic Acid 0.9 (0.5-2.0) mmol/L Calcium 9.9 (8.6-10.3) mg/dL Total Bilirubin 0.60 (0.2-1.0) mg/dL AST 20 (13-39) U/L ALT 40 (7-52) U/L Alkaline Phosphatase 70 (34-104) U/L Total Protein 6.8 (6.4-8.9) g/dL Albumin 4.4 (3.2-5.2) g/dL Globulin 2.4 (2-4) g/dL Albumin/Globulin Ratio 1.8 (1-3) Urine Color Urine Appearance Urine pH (5-9) Ur Specific [place] (1.010-1.030) Urine Protein (Negative) Urine Ketones (Negative) Urine Blood (Negative) Urine Nitrate (Negative) Urine Bilirubin (Negative) Urine Urobilinogen (Negative) Ur Leukocyte Esterase (Negative) Urine WBC (Auto) (Absent) Urine RBC (Auto) (Absent) Urine Bacteria (Absent) Urine Glucose (Negative) 02/11/17 Range/Units 10:52 WBC (3.5-10.8) 10^3/ul RBC (4.0-5.4) 10^6/ul Hgb (14.0-18.0) g/dl Hct (42-52) % MCV (80-94) fL MCH (27-31) pg MCHC (31-36) g/dl RDW (10.5-15) % Plt Count (150-450) 10^3/ul MPV (7.4-10.4) um3 Neut % (Auto) (38-83) % Lymph % (Auto) (25-47) % [place] % (Auto) (1-9) % Eos % (Auto) (0-6) % Baso % (Auto) (0-2) % Absolute Neuts (auto) (1.5-7.7) 10^3/ul Absolute Lymphs (auto) (1.0-4.8) 10^3/ul Absolute Monos (auto) (0-0.8) 10^3/ul Absolute Eos (auto) (0-0.6) 10^3/ul Absolute Basos (auto) (0-0.2) 10^3/ul Absolute Nucleated RBC 10^3/ul Nucleated RBC % Sodium (133-145) mmol/L Potassium (3.5-5.0) mmol/L Chloride (101-111) mmol/L Carbon Dioxide (22-32) mmol/L Anion Gap (2-11) mmol/L BUN (6-24) mg/dL Creatinine (0.67-1.17) mg/dL Est GFR ( Amer) (>60) Est GFR (Non-Af Amer) (>60) BUN/Creatinine Ratio (8-20) Glucose (70-100) mg/dL Lactic Acid (0.5-2.0) mmol/L Calcium (8.6-10.3) mg/dL Total Bilirubin (0.2-1.0) mg/dL AST (13-39) U/L ALT (7-52) U/L Alkaline Phosphatase (34-104) U/L Total Protein (6.4-8.9) g/dL Albumin (3.2-5.2) g/dL Globulin (2-4) g/dL Albumin/Globulin Ratio (1-3) Urine Color Red A Urine Appearance Cloudy Urine pH 6.0 (5-9) Ur Specific [place] 1.027 (1.010-1.030) Urine Protein 2+(100 mg/dl) H (Negative) Urine Ketones Trace H (Negative) Urine Blood 3+ H (Negative) Urine Nitrate Negative (Negative) Urine Bilirubin Negative (Negative) Urine Urobilinogen Negative (Negative) Ur Leukocyte Esterase Negative (Negative) Urine WBC (Auto) Absent (Absent) Urine RBC (Auto) 3+(>10/hpf) H (Absent) Urine Bacteria Absent (Absent) Urine Glucose Negative (Negative) Result Diagrams: 02/11/17 10:52 02/11/17 10:52 Lab Statement: Any lab studies that have been ordered have been reviewed, and results considered in the medical decision making process. <Estella Rosales - Last Filed: 02/11/17 19:50> Re-Evaluation - Re-Evaluation First Eval Re-Evaluation Time: 13:00 Change: Improved - had significant relief after pain medication, on monitor, given strain hat <Kylah Mazariegos - Last Filed: 02/11/17 15:21> GIGU Course/Dx - Course Course Of Treatment: labs and vitals normal, unremarkable. CT abd/pelvis obtained and showed 3mm stone of right UVJ. given pain management, flomax and fluids. strain urine. on monitor. patient had significant relief and was much more comfortable after pain meds. spoke with tejal at 1:00pm as he is a patient of his, who stated have him follow up in office, no further action required at this time, flomax and pain management if desired. fluids, pain and flomax. aware of worsening signs and symptoms. no other concerns at this time. - Diagnoses Differential Diagnoses - Male: Cystitis, Pyelonephritis, Renal Calculi, Renal Colic, Testicular Torsion, Ureteral Calculi, Urinary Tract Infection - Physician Notifications Discussed Care Of Patient With: Dr Hudson Time Discussed With Above Provider: 13:00 Instructed by Provider To: Have Pt Call For Appt. <Kylah Mazariegos - Last Filed: 02/11/17 15:21> <Estella Rosales - Last Filed: 02/11/17 19:50> - Diagnoses Provider Diagnoses: Renal calculus, right Discharge <Klyah Mazariegos - Last Filed: 02/11/17 15:21> <Estella Rosales - Last Filed: 02/11/17 19:50> - Discharge Plan Condition: Improved Disposition: HOME Prescriptions: Tamsulosin CAP* [Flomax CAP*] 0.4 mg PO DAILY #4 cap oxyCODONE/Acetamin 5/325 MG* [Percocet 5/325 TAB*] 1 tab PO Q4H PRN #10 tab MDD 3 PRN Reason: Pain Patient Education Materials: Oxycodone/Acetaminophen (By mouth), Tamsulosin ( By mouth), Kidney Stones (ED) Referrals: Alvino Alexander MD [Primary Care Provider] - Elkin Hudson MD [Medical Doctor] - Additional Instructions: Take prescribed medication as directed. Pain medication only as needed. Do not drive while taking this medication. Follow up with Urologist. If anything worsens or new symptoms develop please seek medical attention promptly. Attestation Statement User Type: Provider - I was available for consult. This patient was seen by the [facility]. The patient was not presented to, seen by, or examined by me. -Kim <Estella Rosales - Last Filed: 02/11/17 19:50> Addendum entered and electronically signed by Estella Rosales MD 02/11/17 20:14 : ED Addendum Addendum: I was available for consult. This patient was seen by the [facility]. The patient was not presented to, seen by, or examined by me. -Kim
[2017-02-11 13:19] VITALS: BP 140/76
== END | disposition home or self-care (01) ==
LOC: ED 10:29
DX: R10.31 Right lower quadrant pain (principal); N20.0 Calculus of kidney; R10.84 Generalized abdominal pain
CPT/HCPCS: 36415; 74176; 80053; 81003; 81015; 83605; 85025; 99282; J1170; J1200; J2270

== ENCOUNTER 2017-06-12 07:37 | Emergency (ER) | payer BC ==
[2017-06-12 07:53] VITALS: BP 132/70
--- NOTE | 2017-06-12 08:08 | UC ---
Ear Complaint HPI - History of Current Complaint Chief Complaint: UCEar Stated Complaint: EAR PAIN Time Seen by Provider: 06/12/17 07:55 Hx Obtained From: Patient Onset/Duration: Gradual Onset, Lasting Days Severity Initially: Mild Severity Currently: Moderate Pain Intensity: 6 Aggravating Factors: Other - worse at night Alleviating Factors: OTC Meds Associated Signs/Symptoms: Positive: URI Symptoms - Allergies/Home Medications Allergies/Adverse Reactions: Allergies Allergy/AdvReac Type Severity Reaction Status Date / Time No Known Allergies Allergy Verified 06/12/17 07:45 PMH/Surg Hx/FS Hx/Imm Hx Previously Healthy: Yes Cardiovascular History: Deep Vein Thrombosis - Surgical History Surgical History: Yes Surgery Procedure, Year, and Place: 05/2002 ARTHROSCOPY RIGHT KNEE, [facility]. 06/2002 ACL REPAIR RIGHT KNEE, [facility]. 10/2006 ARTHROSCOPY RIGHT KNEE, [facility]. 09/08/15 RIGHT SHOULDER ARTHROSCOPIC LABRAL REPAIR, BICEP TENODESIS, [facility]. ACL repair 02/21-RIGHT KNEE. KIDNEY STONE REMOVAL - Family History Known Family History: Positive: None, Other - breast CA - mother Negative: Cardiac Disease, Hypertension, Diabetes, Blood Disorder - no FHX of clotting d/o - Social History Occupation: Employed Full-time Lives: Alone Alcohol Use: Rare Substance Use Type: None Smoking Status (MU): Never Smoked Tobacco - Immunization History Most Recent Tetanus Shot: not sure Review of Systems Constitutional: Negative Skin: Negative Eyes: Negative ENT: Sore Throat, Ear Ache, Nasal Discharge, Sinus Congestion Respiratory: Negative Cardiovascular: Negative Gastrointestinal: Negative Genitourinary: Negative Motor: Negative Neurovascular: Negative Musculoskeletal: Negative Neurological: Negative Psychological: Negative Is Patient Immunocompromised?: No All Other Systems Reviewed And Are Negative: Yes Physical Exam Triage Information Reviewed: Yes Appearance: Well-Appearing Vital Signs: Initial Vital Signs Temp 96.6 F 06/12/17 07:47 Pulse 66 06/12/17 07:47 Resp 16 06/12/17 07:47 BP 132/70 06/12/17 07:47 Pulse Ox 98 06/12/17 07:47 Vital Signs Reviewed: Yes Eye Exam: Normal ENT Exam: Normal ENT: Positive: Pharyngeal erythema, TM bulging, TM dull, TM red, Uvula midline Neck exam: Normal Respiratory Exam: Normal Cardiovascular Exam: Normal Skin Exam: Normal Ear Complaint Course/Dx - Course Course Of Treatment: Patient presents with three day onset complaints of runny nose, ear pain and sore throat. His child has had similar symptoms and now he does not feel well. VSS, nontoxic appearance. Clinical findings are consistent with Otitis media of right ear and patient will be treated with Penvk 500 by mouth four time daily. He was told that if his symptoms get worse he should follow up with his doctor. He verbalized understanding of and in agreement with the discharge plan. - Differential Dx/Diagnosis Differential Diagnosis/HQI/PQRI: Otitis Media Provider Diagnoses: otitis media Discharge - Discharge Plan Condition: Stable Disposition: HOME Prescriptions: Penicillin VK TAB* [Penicillin VK 250 mg Tab*] 500 mg PO QID #80 tab Patient Education Materials: Ear Infection (ED) Referrals: No Primary Care Phys,NOPCP [Primary Care Provider] - Additional Instructions: If your symptoms do not improve please follow up with your PCP.
== END 2017-06-12 08:07 | disposition home or self-care (01) ==
LOC: UCEAST 07:37
DX: H66.91 Otitis media, unspecified, right ear (principal); Z86.718 Personal history of other venous thrombosis and embolism; Z87.442 Personal history of urinary calculi
CPT/HCPCS: 99212; G0463

== ENCOUNTER 2018-02-13 17:04 | Emergency (ER) | payer BC ==
[2018-02-13 17:19] VITALS: BP 139/93
--- NOTE | 2018-02-13 19:31 | UC ---
Back Pain HPI - HPI Summary HPI Summary: The patient is a 37-year-old male with a long history of multiple kidney stones. He states for the past few weeks he has had intermittent left greater than right flank pain. A few days ago he noted blood in his urine. He called his primary care doctor and was started on Flomax. Today he has had no back pain. He complains of a constant need to urinate. Had urgency. States he just wants to make sure he doesn't have a urinary tract infection. - History of Current Complaint Chief Complaint: UCGU Stated Complaint: BACK PAIN, AND STINGING FREQUENT URINATION Time Seen by Provider: 02/13/18 19:10 Hx Obtained From: Patient Onset/Duration: Gradual Onset Timing: Intermittent Severity Currently: None Pain Intensity: 0 Pain Scale Used: 0-10 Numeric Back Pain: Is Diffuse - when he has pain it is L>R Aggravating Factor(s): Nothing Alleviating Factor(s): Other - spontaneously resolved Associated Signs And Symptoms: Positive: Negative Related History: Similar Episode Dx As - kidney stone - Allergies/Home Medications Allergies/Adverse Reactions: Allergies Allergy/AdvReac Type Severity Reaction Status Date / Time No Known Allergies Allergy Verified 02/13/18 17:19 Home Medications: Home Medications Tamsulosin CAP* [Flomax CAP*] 1 tab PO DAILY 02/13/18 [History Confirmed ] PMH/Surg Hx/FS Hx/Imm Hx Previously Healthy: Yes Cardiovascular History: Hypertension, Deep Vein Thrombosis Respiratory History: Pulmonary Embolism - Surgical History Surgical History: Yes Surgery Procedure, Year, and Place: 05/2002 ARTHROSCOPY RIGHT KNEE, [facility] [place]. 06/2002 ACL REPAIR RIGHT KNEE, [facility] [place]. 10/2006 ARTHROSCOPY RIGHT KNEE, [facility] [place] 09/08/15 RIGHT SHOULDER ARTHROSCOPIC LABRAL REPAIR, BICEP TENODESIS, [facility] [place]. ACL repair 02/21-RIGHT KNEE. KIDNEY STONE REMOVAL - Family History Known Family History: Positive: None, Other - breast CA - mother Negative: Cardiac Disease, Hypertension, Diabetes, Blood Disorder - no FHX of clotting d/o - Social History Alcohol Use: Rare Substance Use Type: None Smoking Status (MU): Never Smoked Tobacco - Immunization History Most Recent Tetanus Shot: not sure Review of Systems Constitutional: Negative Skin: Negative Eyes: Negative ENT: Negative Respiratory: Negative Cardiovascular: Negative Gastrointestinal: Negative Genitourinary: Frequency, Urgency Motor: Negative Neurovascular: Negative Musculoskeletal: Negative Neurological: Negative Psychological: Negative All Other Systems Reviewed And Are Negative: Yes Physical Exam Triage Information Reviewed: Yes Appearance: Well-Appearing, No Pain Distress, Well-Nourished Vital Signs: Initial Vital Signs Temp 98.1 F 02/13/18 17:16 Pulse 58 02/13/18 17:16 Resp 18 02/13/18 17:16 BP 139/93 02/13/18 17:16 Pulse Ox 100 02/13/18 17:16 Vital Signs Reviewed: Yes Eyes: Positive: Conjunctiva Clear ENT: Positive: Hearing grossly normal. Negative: Nasal congestion, Nasal drainage, Trismus, Muffled voice, Hoarse voice Neck: Positive: Supple, Nontender Respiratory: Positive: Lungs clear, Normal breath sounds, No respiratory distress Cardiovascular: Positive: RRR, No Murmur, Pulses Normal, Brisk Capillary Refill Abdomen Description: Positive: Nontender, No Organomegaly, CVA Tenderness (L) - very mild Bowel Sounds: Positive: Present Musculoskeletal: Positive: ROM Intact, No Edema Neurological: Positive: Alert Psychological Exam: Normal Diagnostics - Laboratory Diagnostic Studies Completed/Ordered: UA _tr blood Back Pain Course/Dx - Course Course Of Treatment: I informed the patient denies suspected he had a small kidney stone at the left UVJ placed on his symptoms. He states that since he has no back pain he does not desire any imaging at this point - Differential Dx/Diagnosis Provider Diagnoses: urolithiasis Discharge - Sign-Out/Discharge Documenting (check all that apply): Patient Departure All imaging exams completed and their final reports reviewed: No Studies - Discharge Plan Condition: Stable Disposition: HOME Patient Education Materials: Kidney Stones (ED) Referrals: Alvino Alexander MD [Primary Care Provider] - 4 Days (see him this week) Additional Instructions: continue to strain urine to ER for new or worsening symptoms a urine culture is pending continue flomax - Billing Disposition and Condition Condition: STABLE Disposition: Home
== END 2018-02-13 19:50 | disposition home or self-care (01) ==
LOC: UCEAST 17:04
DX: N20.9 Urinary calculus, unspecified (principal); Z87.442 Personal history of urinary calculi; I10 Essential (primary) hypertension
CPT/HCPCS: 81003; 87086; 99211; G0463

== ENCOUNTER 2018-04-10 13:25 | Emergency (ER) | payer BC ==
[2018-04-10 16:25] LABS: INR 0.94 (0.77-1.02)
[2018-04-10 16:27] LABS: ABS Basophils 0 10^3/ul (0-0.2); ABS Eosinophils 0.1 10^3/ul (0-0.6); ABS Lymphocytes 2.4 10^3/ul (1.0-4.8); ABS Monocytes 0.6 10^3/ul (0-0.8); ABS Neutrophils 4.7 10^3/ul (1.5-7.7); ABS Nucleated RBC 0 10^3/ul; Eosinophil % 1.4 %; Hematocrit 42 % (42-52); Hemoglobin 14.6 g/dl (14.0-18.0); Lymphocyte % 30.4 %; Mean Corpuscular HGB Conc 35 g/dl (31-36); Mean Corpuscular Hemoglobin 31 pg (27-31); Mean Corpuscular Volume 91 fL (80-94); Mean Platelet Volume 9.6 fL (7.4-10.4); Nucleated Red Blood Cells % 0.1; Platelet Count 235 10^3/ul (150-450); Red Blood Count 4.63 10^6/ul (4.00-5.40); Red Cell Distribution Width 13 % (10.5-15); White Blood Count 7.9 10^3/ul (3.5-10.8)
[2018-04-10 17:45] LABS: Urine Appearance Cloudy; Urine Blood 3+ (Negative); Urine Color Yellow; Urine Ketones Negative (Negative); Urine Protein Negative (Negative); Urine Red Blood Cell 3+(>10/hpf) (Absent); Urine Specific Gravity 1.019 (1.010-1.030); Urine Urobilinogen Negative (Negative); Urine White Blood Cell Trace(0-5/hpf) (Absent)
--- NOTE | 2018-04-10 18:59 | ED ---
Back Pain - HPI Summary HPI Summary: Patient complains of bilateral flank pain, hematuria x 3 days. History of kidney stones. Patient states he passed a stone while waiting in the waiting room. Stone visible in urine cup. States pain persists. Has fever, cough, sore throat, CP, SOB, N/V/D, abdominal pain, change in BM. Medical history is kidney stones. - History of Current Complaint Chief Complaint: EDFlankPain Stated Complaint: BLOOD IN URINE Time Seen by Provider: 04/10/18 17:23 Hx Obtained From: Patient Onset/Duration: Sudden Onset Onset/Duration: Started Days Ago Timing: Intermittent Back Pain Location: Is Diffuse Severity Initially: Moderate Severity Currently: Moderate Pain Intensity: 0 Pain Scale Used: 0-10 Numeric Character: Aching, Throbbing Aggravating Symptom(s): Nothing Alleviating Symptom(s): Nothing Associated Signs And Symptoms: Positive: Negative - Allergies/Home Medications Allergies/Adverse Reactions: Allergies Allergy/AdvReac Type Severity Reaction Status Date / Time No Known Allergies Allergy Verified 04/10/18 13:53 PMH/Surg Hx/FS Hx/Imm Hx Endocrine/Hematology History: Denies: Hx Anticoagulant Therapy, Hx Diabetes, Hx Thyroid Disease Cardiovascular History: Reports: Other Cardiovascular Problems/Disorders - HX OF BLOOD CLOTS Denies: Hx Hypertension, Hx Pacemaker/ICD Respiratory History: Reports: Hx Pulmonary Embolism - 2008, Other Respiratory Problems/Disorders - PE 2008 Denies: Hx Asthma, Hx Chronic Obstructive Pulmonary Disease (COPD) GI History: Denies: Hx Ulcer History: Reports: Hx Kidney Stones - LEFT Denies: Hx Renal Disease Sensory History: Denies: Hx Contacts or Glasses, Hx Hearing Aid Opthamlomology History: Denies: Hx Contacts or Glasses Neurological History: Reports: Hx Headaches - prn medication for, Hx Migraine - prn medication for Psychiatric History: Denies: Hx Panic Disorder - Surgical History Surgery Procedure, Year, and Place: 05/[place] [facility] [place] [facility] [place] [facility] [place]. [place]ROSCOPY RIGHT [place]EE, [facility]. 09/08/15 RIGHT SHOULDER ARTHROSCOPIC LABRAL REPAIR, [place]ICEP [place] [facility] [place] [facility] [place] 02/21-RIGHT KNEE. KIDNEY STONE REMOVAL Hx Anesthesia Reactions: No Infectious Disease History: Yes Infectious Disease History: Denies: Hx Clostridium Difficile, Hx Hepatitis, Hx Human Immunodeficiency Virus (HIV), Hx of Known/Suspected MRSA, Hx Shingles, Hx Tuberculosis, Hx Known/ Suspected VRE, Hx Known/Suspected VRSA, History Other Infectious Disease, Traveled Outside the [place] in Last 30 Days - Family History Known Family History: Positive: None, Other - breast CA - mother Negative: Cardiac Disease, Hypertension, Diabetes, Blood Disorder - no FHX of clotting d/o - Social History Alcohol Use: Rare Substance Use Type: Reports: None Smoking Status (MU): Never Smoked Tobacco Review of Systems Constitutional: Negative Eyes: Negative ENT: Negative Cardiovascular: Negative Respiratory: Negative Gastrointestinal: Negative Positive: flank pain, hematuria Musculoskeletal: Negative Skin: Negative Neurological: Negative Psychological: Normal All Other Systems Reviewed And Are Negative: Yes Physical Exam Triage Information Reviewed: Yes Vital Signs On Initial Exam: Initial Vitals Temp Pulse Resp BP Pulse Ox 98.4 F 62 20 178/90 99 04/10/18 13:35 04/10/18 13:35 04/10/18 13:35 04/10/18 13:35 04/10/18 13:35 Vital Signs Reviewed: Yes Appearance: Positive: Well-Appearing Skin: Positive: Warm Head/Face: Positive: Normal Head/Face Inspection Eyes: Positive: Normal Neck: Positive: Supple Respiratory/Lung Sounds: Positive: Clear to Auscultation Cardiovascular: Positive: Normal Abdomen Description: Positive: CVA Tenderness (R), CVA Tenderness (L) Musculoskeletal: Positive: Normal Neurological: Positive: Normal Psychiatric: Positive: Normal AVPU Assessment: Alert - [place] Coma Scale Best Eye Response: 4 - Spontaneous Best Motor Response: 6 - Obeys Commands Best Verbal Response: 5 - Oriented Coma Scale Total: 15 Diagnostics - Vital Signs Vital Signs Temp Pulse Resp BP Pulse Ox 04/10/18 16:49 97.7 F 54 16 157/105 99 04/10/18 13:35 98.4 F 62 20 178/90 99 - Laboratory Lab Results: Lab Results 04/10/18 04/10/18 04/10/18 Range/Units 15:52 15:52 15:52 WBC 7.9 (3.5-10.8) 10^3/ul RBC 4.63 (4.00-5.40) 10^6/ul Hgb 14.6 (14.0-18.0) g/dl Hct 42 (42-52) % MCV 91 (80-94) fL MCH 31 (27-31) pg MCHC 35 (31-36) g/dl RDW 13 (10.5-15) % Plt Count 235 (150-450) 10^3/ul MPV 9.6 (7.4-10.4) fL Neut % (Auto) 59.8 % Lymph % (Auto) 30.4 % [place] % (Auto) 7.9 % Eos % (Auto) 1.4 % Baso % (Auto) 0.5 % Absolute Neuts (auto) 4.7 (1.5-7.7) 10^3/ul Absolute Lymphs (auto) 2.4 (1.0-4.8) 10^3/ul Absolute Monos (auto) 0.6 (0-0.8) 10^3/ul Absolute Eos (auto) 0.1 (0-0.6) 10^3/ul Absolute Basos (auto) 0 (0-0.2) 10^3/ul Absolute Nucleated RBC 0 10^3/ul Nucleated RBC % 0.1 INR (Anticoag Therapy) 0.94 (0.77-1.02) APTT 27.8 (26.0-36.3) seconds Sodium 141 (135-145) mmol/L Potassium 3.7 (3.5-5.0) mmol/L Chloride 108 (101-111) mmol/L Carbon Dioxide 28 (22-32) mmol/L Anion Gap 5 (2-11) mmol/L BUN 16 (6-24) mg/dL Creatinine 0.99 (0.67-1.17) mg/dL Est GFR ( Amer) 104.1 (>60) Est GFR (Non-Af Amer) 86.0 (>60) BUN/Creatinine Ratio 16.2 (8-20) Glucose 100 (70-100) mg/dL Calcium 10.4 H (8.6-10.3) mg/dL Total Bilirubin 0.30 (0.2-1.0) mg/dL AST 24 (13-39) U/L ALT 44 (7-52) U/L Alkaline Phosphatase 88 (34-104) U/L C-Reactive Protein 2.37 (<8.01) mg/L Total Protein 6.7 (6.4-8.9) g/dL Albumin 4.2 (3.2-5.2) g/dL Globulin 2.5 (2-4) g/dL Albumin/Globulin Ratio 1.7 (1-3) Urine Color Urine Appearance Urine pH (5-9) Ur Specific [place] (1.010-1.030) Urine Protein (Negative) Urine Ketones (Negative) Urine Blood (Negative) Urine Nitrate (Negative) Urine Bilirubin (Negative) Urine Urobilinogen (Negative) Ur Leukocyte Esterase (Negative) Urine WBC (Auto) (Absent) Urine RBC (Auto) (Absent) Urine Bacteria (Absent) Hyaline Casts (Absent) Urine Yeast (Absent) Urine Glucose (Negative) 04/10/18 Range/Units 16:53 WBC (3.5-10.8) 10^3/ul RBC (4.00-5.40) 10^6/ul Hgb (14.0-18.0) g/dl Hct (42-52) % MCV (80-94) fL MCH (27-31) pg MCHC (31-36) g/dl RDW (10.5-15) % Plt Count (150-450) 10^3/ul MPV (7.4-10.4) fL Neut % (Auto) % Lymph % (Auto) % [place] % (Auto) % Eos % (Auto) % Baso % (Auto) % Absolute Neuts (auto) (1.5-7.7) 10^3/ul Absolute Lymphs (auto) (1.0-4.8) 10^3/ul Absolute Monos (auto) (0-0.8) 10^3/ul Absolute Eos (auto) (0-0.6) 10^3/ul Absolute Basos (auto) (0-0.2) 10^3/ul Absolute Nucleated RBC 10^3/ul Nucleated RBC % INR (Anticoag Therapy) (0.77-1.02) APTT (26.0-36.3) seconds Sodium (135-145) mmol/L Potassium (3.5-5.0) mmol/L Chloride (101-111) mmol/L Carbon Dioxide (22-32) mmol/L Anion Gap (2-11) mmol/L BUN (6-24) mg/dL Creatinine (0.67-1.17) mg/dL Est GFR ( Amer) (>60) Est GFR (Non-Af Amer) (>60) BUN/Creatinine Ratio (8-20) Glucose (70-100) mg/dL Calcium (8.6-10.3) mg/dL Total Bilirubin (0.2-1.0) mg/dL AST (13-39) U/L ALT (7-52) U/L Alkaline Phosphatase (34-104) U/L C-Reactive Protein (<8.01) mg/L Total Protein (6.4-8.9) g/dL Albumin (3.2-5.2) g/dL Globulin (2-4) g/dL Albumin/Globulin Ratio (1-3) Urine Color Yellow Urine Appearance Cloudy Urine pH 6.0 (5-9) Ur Specific [place] 1.019 (1.010-1.030) Urine Protein Negative (Negative) Urine Ketones Negative (Negative) Urine Blood 3+ A (Negative) Urine Nitrate Negative (Negative) Urine Bilirubin Negative (Negative) Urine Urobilinogen Negative (Negative) Ur Leukocyte Esterase Negative (Negative) Urine WBC (Auto) Trace(0-5/hpf) (Absent) Urine RBC (Auto) 3+(>10/hpf) A (Absent) Urine Bacteria Absent (Absent) Hyaline Casts Present A (Absent) Urine Yeast Present A (Absent) Urine Glucose Negative (Negative) Result Diagrams: 04/10/18 15:52 04/10/18 15:52 Lab Statement: Any lab studies that have been ordered have been reviewed, and results considered in the medical decision making process. Back Pain Course/Dx - Course Course Of Treatment: Patient complains of bilateral flank pain, hematuria x 3 days. History of kidney stones. Patient states he passed a stone while waiting in the waiting room. Stone visible in urine cup. States pain persists. Has fever, cough, sore throat, CP, SOB, N/V/D, abdominal pain, change in BM. Medical history is kidney stones. CVA tenderness bilaterally. Abdomen soft nontender. Vital signs within normal limits and stable. Abdomen unremarkable. Renal ultrasound for renal calculi and hydronephrosis. KUB negative for renal calculi. Follow-up with urology. - Diagnoses Provider Diagnoses: Flank pain, Hematuria Discharge - Sign-Out/Discharge Documenting (check all that apply): Patient Departure - Discharge Plan Condition: Stable Disposition: HOME Prescriptions: HYDROcodone/ACETAMIN 5-325 MG* [[place] 5-325 TAB*] 1 tab PO Q6H PRN 2 Days #8 tab MDD 3-4tabs PRN Reason: Pain Patient Education Materials: Kidney Stones (ED) Referrals: Alvino Alexander MD [Primary Care Provider] - Cory Kemp MD [Medical Doctor] - Additional Instructions: Follow-up with urologist Dr Kemp for further evaluation. Return to the ED for any new or worsening symptoms. - Billing Disposition and Condition Condition: STABLE Disposition: Home
[2018-04-10 19:13] VITALS: BP 155/94
== END 2018-04-10 19:12 | disposition home or self-care (01) ==
LOC: ED 13:25
DX: M54.5 Low back pain (principal); R31.9 Hematuria, unspecified; Z87.442 Personal history of urinary calculi
CPT/HCPCS: 36415; 74018; 76775; 80053; 81003; 81015; 85025; 85610; 85730; 86140; 87086; 99282

== ENCOUNTER 2018-07-14 07:02 | Observation (INO) | payer BC ==
[~2018-07-14 07:02] MED LIST changes: +Buffered Lidocaine 1% SYRIN* 1 ML/SYRINGE INTRADERM ONE; +Famotidine IV* 10 MG/ML 2 ML (20 mg) IV ONE; -HYDROmorphone INJ* 2 MG/ML CARPUJECT SYRINGE IV SLOW PU ONE; -HYDROmorphone INJ* 2 MG/ML CARPUJECT SYRINGE ONE; +Lactated Ringers 1000 ML Bag* 1,000 ML IV SCH; -Morphine INJ* 4 MG/ML 1 ML CARPUJECT IV ONE; -Tamsulosin CAP* 0.4 MG PO ONE; -diPHENhydraMINE IV* 50 MG/ML 1 ml VIAL (BENADRYL) IV ONE; -diPHENhydraMINE IV* 50 MG/ML 1 ml VIAL (BENADRYL) ONE
[2018-07-14] MEDS ORDERED: Famotidine IV* 10 MG/ML 2 ML (20 mg) ONE (08:18)
[2018-07-14] MEDS ORDERED: Lidocaine 2% PF * 5 ML VIAL ONE (08:50)
[2018-07-14] MEDS ORDERED: Midazolam* 1 MG/ML 5 ML VIAL (5 MG) ONE (08:50)
[2018-07-14] MEDS ORDERED: fentaNYL* 50 MCG/ML 5 ML VIAL (250 MCG VIAL) ONE (08:50)
[2018-07-14] MEDS ORDERED: Cisatracurium* 2 MG/ML MDV 5 ML ONE (08:50)
[2018-07-14] MEDS ORDERED: Propofol* 10 MG/ML 20 ML BTL ONE (08:50)
[2018-07-14] MEDS ORDERED: Ondansetron INJ* 2 MG/ML VIAL ONE ×2 (08:50→16:37)
[2018-07-14] MEDS ORDERED: Dexamethasone IV* 4 MG/ML 1 ML (4 MG) ONE (08:50)
[2018-07-14] MEDS ORDERED: Lidocaine 1% INJ* 10 MG/ML 30 ML SDV ONE (10:00)
[2018-07-14] MEDS ORDERED: Bupivacaine 0.25% SDV PF* 10 ML VIAL INJ ONE (10:00)
[2018-07-14] MEDS ORDERED: Naloxone* 0.4 MG/ML 1 ML VIAL IV PRN (11:40)
[2018-07-14] MEDS ORDERED: Ondansetron INJ* 2 MG/ML VIAL IV PRN ×2 (11:40→17:33)
[2018-07-14] MEDS ORDERED: fentaNYL* 50 MCG/ML 2 ML VIAL (100 MCG VIAL) ONE ×8 (12:32→18:22)
[2018-07-14] MEDS ORDERED: HYDROmorphone INJ1* 1 MG/ML SYRINGE ONE ×3 (13:10→19:26)
[2018-07-14] MEDS: fentaNYL* 50 MCG/ML 2 ML VIAL (100 MCG VIAL) IV PRN ×5 (17:13→18:23)
[2018-07-14] MEDS ORDERED: Ketorolac INJ* 30 MG/ML 1 ML VIAL ONE (17:39)
[2018-07-14] MEDS: Ketorolac INJ* 15 MG/ML 1 ML VIAL IV PUSH PRN (17:40)
[2018-07-14] MEDS ORDERED: Midazolam* 1 MG/ML 2 ML VIAL (2 MG) ONE (17:53)
[2018-07-14] MEDS ORDERED: Lactated Ringers 1000 ML Bag* 1,000 ML IV SCH (18:00)
[2018-07-14] MEDS ORDERED: Cyclobenzaprine TAB* 10 MG PO PRN ×2 (18:00→22:43)
[2018-07-14] MEDS ORDERED: Magnesium Sulfate 1 GM IV* 1 GM/100 ML BAG IV ONE (19:22)
[2018-07-14] MEDS ORDERED: fentaNYL* 50 MCG/ML 2 ML VIAL (100 MCG VIAL) IV PRN (19:30)
[2018-07-14] MEDS ORDERED: LORazepam INJ* 2 MG/ML 1 ML VIAL IV PUSH ONE (19:31)
[2018-07-14] MEDS ORDERED: LORazepam INJ* 2 MG/ML 1 ML VIAL ONE (19:42)
[2018-07-14] MEDS ORDERED: MAGNESIUM SULFATE IVPB ONE (20:00)
[2018-07-14] MEDS: HYDROmorphone INJ1* 1 MG/ML SYRINGE IV SLOW PU PRN ×2 (20:03→20:32)
[2018-07-14] MEDS: oxyCODONE/Acetamin 5/325 MG* TAB PO PRN (22:48)
[2018-07-14] MEDS: Heparin VIAL(*) 5000 UNITS/ML VIAL (FIVE THOUSAND) SUBCUT SCH (22:49)
[2018-07-15] MEDS: Ketorolac INJ* 15 MG/ML 1 ML VIAL IV PUSH PRN (00:04)
--- NOTE | 2018-07-15 00:08 | OP ---
DATE OF OPERATION: 07/14/18 - ROOM #346 DATE OF : 84 SERVICE: General Surgery. SURGEON: Vesna Mello MD SUPERVISOR HOT DIP TINNING: Grace Espana MD ANESTHESIOLOGIST: Dr. Juan Antonio Anaya. ANESTHESIA: General endotracheal anesthesia. PRE-OP DIAGNOSIS: Primary hyperparathyroidism. POST-OP DIAGNOSIS: Primary hyperparathyroidism. OPERATIVE PROCEDURE: Parathyroidectomy, 4 gland exploration and 3.5 gland excision. ESTIMATED BLOOD LOSS: minimal, less than 10cc INDICATIONS FOR SURGERY: Mr. Salamanca is a very pleasant 37-year-old gentleman with a history of primary hyperparathyroidism and kidney stones. Given his young age and the history of kidney stones, he met criteria for undergoing a parathyroidectomy. Preoperatively, he underwent a sestamibi scan as well as ultrasound which failed to localize the parathyroid adenoma and he declined undergoing a 4D-CT scan. He therefore gave informed consent for a 4-gland exploration and parathyroidectomy. He understood the risks of the surgery which included bleeding, infection, injury to nearby structures such as the recurrent laryngeal nerve as well as permanent hypoparathyroidism. He understood all these things and he wished to proceed. DESCRIPTION OF PROCEDURE: The patient was brought back to the operating room and placed on the operating table in a supine position. Sequential compression devices were placed in the bilateral lower extremities for DVT prophylaxis. No antibiotics were administered. General endotracheal anesthesia was induced. Both arms were tucked and the patient was positioned with his neck slightly extended. The nerve monitor leads were attached. Prior to infiltrating local anesthesia with 0.25% Marcaine plus 1% lidocaine mix, a time-out was performed. Once this was done, his mid neck was infiltrated with local anesthesia and then it was prepped and draped in normal sterile fashion. Prior to beginning the operation, a time-out was again performed verifying the patient's name, MRN number, and the procedure to be performed. An approximately 4 cm transverse mid neck incision was made at a natural crease line approximately 2 fingerbreadths above sternal notch. The skin was divided down onto the subcutaneous tissue. Inferior and superior subplatysmal flaps were developed. The median raphe between the strap muscles were identified and divided all the way down to the thyroid isthmus. Once this was done, the strap muscles were further divided inferiorly and superiorly. Attention was turned towards the right thyroid lobe. The right thyroid lobe was mobilized up and out of the neck medially and the fascia just lateral to the thyroid was entered and retracted. Exploration of the space lateral to the right thyroid lobe identified a right lower parathyroid within the thyrothymic ligament and then exploration of the right upper lobe identified what appeared to be a normal right upper parathyroid. Therefore, attention was then turned towards the left thyroid lobe which was then also retracted up and medially out of the neck with care taken to avoid injury to the recurrent laryngeal nerve. Exploration showed the left lower parathyroid was also identified within the thyrothymic ligament in a similar location to the right lower parathyroid. It appeared to be adenomatous and abnormal in appearance. Once it was identified, attention was turned towards the left upper thyroid lobe and it appeared that the left upper parathyroid was normal in appearance. Therefore, given that both the lower parathyroids appeared to be somewhat abnormal, they were removed, and biopsy was sent to confirm that they were indeed parathyroid glands and PTH levels were sent. The baseline PTH was 15.8, time 0 was 19.2, time 5 was 18.9, and time 10 was 16.7. Given that the PTH levels failed to drop and meet the [place] criterion, further exploration of the neck was performed. Attention was turned towards identifying the upper parathyroid glands. A biopsy was sent of what appeared to be the right upper and the left upper parathyroid glands. However, they both returned as fatty tissue. A time 60, PTH was also sent and it remained elevated at 18.6. After several biopsies, the left upper parathyroid was biopsy proven and a clip was left at the biopsy site. Attention was turned towards the right upper thyroid lobe. At this point, this was the only parathyroid that had not been biopsy-confirmed. It was suspected that the patient did have 4-gland hyperplasia given that he failed to localize on his sestamibi and ultrasound. The right upper parathyroid was eventually identified and it was biopsied, confirming that it was parathyroid tissue. The right upper parathyroid was slightly lower in the neck and it appeared to have more adenomatous appearance. Therefore, it was taken in its entirety and the final biopsy did confirm again parathyroid tissue. At this point, a 3.5-gland excision had been performed, with the remaining parathyroid tissue at the left upper parathyroid. Then, a decision was made to close the neck given that 4 parathyroids were all identified, biopsy proven, and 3.5 glands were taken where the 3 most abnormal glands were taken in its entirety. Hemostasis of the thyroid beds was obtained after obtaining Valsalva. TISSEEL was placed into the neck. The strap muscles were reapproximated using interrupted 3-0 Vicryl sutures. The platysma was closed using interrupted 3-0 Vicryl sutures and the skin was closed using a running 4-0 Prolene suture. Sterile dressing was then placed and the patient's anesthesia was reversed, and he was taken to the PACU in stable condition. At the end of the case, all counts were correct. I was present during the entirety of the case. Of note, the patient also had been catheterized during the case. [id number]/[facility] #: [id number] MTDD
[2018-07-15] MEDS: oxyCODONE/Acetamin 5/325 MG* TAB PO PRN (05:52)
[2018-07-15] MEDS: Heparin VIAL(*) 5000 UNITS/ML VIAL (FIVE THOUSAND) SUBCUT SCH (05:53)
[2018-07-15 07:53] VITALS: BP 143/79
--- NOTE | 2018-07-16 07:18 | DS ---
DISCHARGE SUMMARY: DATE OF ADMISSION: 07/14/18 DATE OF DISCHARGE: 07/15/18 SERVICE: General Surgery. ATTENDING PHYSICIAN: Vesna Mello MD. ADMISSION DIAGNOSIS: Primary hyperparathyroidism. DISCHARGE DIAGNOSIS: Primary hyperparathyroidism. OPERATION TITLE: Parathyroidectomy, 4-gland exploration. HOSPITAL COURSE: Mr. Salamanca is a very pleasant 37-year-old gentleman with a history of primary hyperparathyroidism and kidney stones. He underwent an elective 4-gland exploration and 3.5 gland parathyroidectomy on 07/14/18 for his diagnosis of primary hyperparathyroidism. Given how long the procedure was , he was admitted for overnight observation. On the day of discharge, on postoperative day 1, he was doing well. He was tolerating regular diet. He was without significant neck pain. He described only minimal finger tingling. However, he did have some significant pain in his back, likely from lying on an operating table for several hours. He was administered Flexeril and had heat pads applied to his back, but he did say his back was sore. Otherwise, again, he was doing well. His calcium was normal on discharge labs. PHYSICAL EXAM ON DISCHARGE: His neck incision with dressing was clean, dry, and intact, minimal swelling. Back had some swelling in his right paraspinous muscles and some erythema over the skin, slightly tender to palpation. Vital signs: Temperature 98.1, heart rate is 79, respiratory rate is 20, O2 sat is 98 % O2 on room air, blood pressure is 143/79. LABORATORY DATA: PTH of 12.1, calcium 9.2. DISCHARGE INSTRUCTIONS: The patient was instructed to take calcium 1000 mg p.o. daily for 3 weeks. He also was provided a prescription for Percocet as needed. He was given a printout of discharge instructions and was told to follow up in the office in 1 week to have his suture removed. If he continues to have no neck swelling, then he should be able to receive his Xarelto on Tuesday. He should also continue to apply heat packs to his back and observe his muscle pain for resolution. If he has any questions or concerns, he can call the office or call the answering service where the on-call surgical team could be reached. DISPOSITION: Home. CONDITION: Good. [id number]/[facility] #: [id number]
== END 2018-07-15 09:30 | disposition home or self-care (01) ==
LOC: OR 07:02 → SSU 17:33
PROVIDERS: ADMIT Surgery; ATTEND Surgery
DX: E21.0 Primary hyperparathyroidism (principal); Z87.442 Personal history of urinary calculi
CPT/HCPCS: 36415; 82310; 83970; 88305; 88331; 96374; 96375; 96376; A9270-GY; C1776; G0378; J1100; J1170; J1644; J1885; J2060; J2250; J2405; J2704; J3010; J3475; J3490